=== PATIENT | female | born 1990 | race Caucasian/White ===

== ENCOUNTER 2023-01-23 01:34 | Inpatient (IN) | payer MEDICAID, SELFPAY ==
[2023-01-23] VITALS (12 sets, daily range): BP systolic 109–149; BP diastolic 67–102; PULSE 98–125; RESP 18–26; TEMP 36.4–37.2; O2SAT 91–96; BMI 31.2; BMI 27.4
--- NOTE | ~2023-01-23 | NM_ITS ---
EXAMINATION: SD LUNG IMAGE PERFUSION CLINICAL INFORMATION: SOB and 1 month . COMPARISON: Chest x-ray 01/23/2023. TECHNIQUE: Following intravenous administration of 4 mCi of 90 9M technetium MAA, imaging of both lungs were obtained multiple projections. Ventilation study was not performed. FINDINGS: On perfusion scan there is normal flow seen to all segments of both lungs without any focal segmental or subsegmental defect. Ventilation study was not performed. NM/SD pul perfusion IMPRESSION: Normal perfusion scan. Suspicion for pulmonary emboli is low. Chest x-ray is more suggestive of multifocal pneumonia. Is patient Covid negative ?.
--- NOTE | ~2023-01-23 | XR_ITS ---
EXAMINATION: XR CHEST CLINICAL INFORMATION: Shortness of breath COMPARISON: None available. TECHNIQUE: Frontal view of the chest was obtained. FINDINGS: Diffuse bilateral streaky and patchy airspace opacities with partial obscuration of the diaphragm. Cardiac silhouette and pulmonary vascularity incompletely assessed due to the airspace disease. No large pleural effusion. No pneumothorax. No acute osseous abnormalities. XR/XR chest 1V IMPRESSION: Diffuse bilateral streaky and patchy airspace opacities compatible with multifocal pneumonia, or pulmonary edema.
--- NOTE | 2023-01-23 02:07 | ED.ASTHMA ---
HPI - Asthma General Chief Complaint: Asthma Stated Complaint: Diff breathing/ asthma Time Seen by Provider: 01/23/23 01:55 Source: patient Mode of arrival: ambulatory Limitations: no limitations History of Present Illness HPI Narrative: Patients of asthma and seasonal allergies being short of breath for last 5 days patient is 1 month. Tried albuterol inhaler without much response saturating 89% at room air no leg pain no fever patient with coughing and vomiting after cough no fever no chills patient feeling increased short of breath patient lying down for last 2 days no leg edema patient was too had high blood pressure at the time of delivery no follow-up blood pressure on arrival patient's blood pressure was 149/102 heart rate of 125 Related Data Allergies Allergy/AdvReac Type Severity Reaction Status Date / Time No Known Allergies Allergy Verified 01/23/23 02:20 Review of Systems Review of Systems: Yes all other systems are reviewed and are negative [facility] Social History Social History Alcohol intake: never Smoked in Last 30 Days: No Use of substances other than those prescribed or required for medical reasons: No Advance Directives: No Advance Directives Information Provided: No Patient : No Physical Exam Vital Signs: Vital Signs: Last Vital Signs Temp 97.5 F 01/23/23 04:00 Pulse 125 H 01/23/23 04:18 Resp 24 H 01/23/23 04:18 BP 136/92 H 01/23/23 04:18 Pulse Ox 96 01/23/23 04:18 O2 Del Method Nasal Cannula 01/23/23 04:18 O2 Flow Rate 3 01/23/23 04:18 BMI result Body Mass Index 31.2 Appearance: Alert. Oriented X3. In moderate respiratory distress Eyes: PERRLA, No Nystagmus ENT: Pharynx normal. Oral Mucosa moist Neck: Normal inspection. Neck supple. CVS: Normal heart rate and rhythm. Pulses normal. Respiratory: Moderate respiratory distress. Equal air entry bilateral, bilateral prolonged expiration coarse crackle bilateral bases right > left Abdomen: Soft and nontender. Bowel sounds are present, no mass palpable, no CVA tenderness Skin: Skin warm and dry. Normal skin color. Normal skin turgor. Extremities: No lower extremity edema. No calf tenderness Neuro: Oriented X 3. No motor deficit. Medications Administered Discontinued Medications Generic Name Dose Route Start Last Admin Trade Name Freq PRN Reason Stop Dose Admin Albuterol Sulfate 5 mg/ 0 mg 01/23/23 02:20 01/23/23 02:53 Albuterol/Ipratropium 3 ml INHALE 01/23/23 02:21 1 each ONCE ONE Administration Furosemide 40 mg 01/23/23 04:20 01/23/23 04:44 Furosemide 40 Mg/4 Ml Vial IVPUSH 01/23/23 04:21 40 mg ONCE ONE Administration Protocol Sodium Chloride 1,000 mls @ 999 mls/hr 01/23/23 02:20 01/23/23 03:50 Ns IV 01/23/23 03:20 Infused .Q1H1M ONE Infusion Magnesium Sulfate 2 gm in 50 mls @ 100 mls/hr 01/23/23 02:20 01/23/23 03:18 Magnesium Sulfate/H2o IV 01/23/23 02:49 Infused ONCE ONE Infusion Ceftriaxone Sodium 1 gm/ 50 mls @ 100 mls/hr 01/23/23 05:14 01/23/23 05:56 Sodium Chloride IV 01/23/23 05:43 Infused ONCE ONE Infusion Methylprednisolone Sodium Succinate 125 mg 01/23/23 02:20 01/23/23 02:48 Methylprednisolone Sod Succ 125 Mg/2 Ml Vial IVPUSH 01/23/23 02:21 125 mg ONCE ONE Administration Medical Decision Making Medical Decision Making [facility] Narrative: Patient with acute shortness of breath with history of asthma workup showed elevated BNP suggestive of CHF x-ray showed pulmonary edema versus infiltrate more likely pulmonary edema with elevated BNP normal WBC count patient troponin also slightly elevated without any acute ischemic changes in the EKG. Her lactic acid level was elevated 3.6 but is mostly from type B lactic acidosis from use of albuterol treatment no signs suggestive of sepsis. Patient tachycardia is from CHF and cardiomyopathy. We will hold IV fluids at this time instead will give diuresis, will give prophylactic Rocephin as she had some wbc's in the urine Differential Diagnosis Status asthmaticus/CHF/PE/pneumonia Consult Healthcare Provider Management of the patient was discussed with: Hospitalist Lab Data [facility] Lab Attestation statement: I reviewed the patient's lab results. 01/23/23 02:41 01/23/23 02:41 Labs: Lab Results 06/16/23 06/16/23 06/16/23 Range/Units 02:41 02:41 02:41 WBC 9.7 (4.8-10.8) X10*3/uL RBC 4.62 (4.20-5.50) X10*6/uL Hgb 13.8 (12.0-16.0) g/dl Hct 41.0 (37.0-47.0) % MCV 88.7 (80.0-98.0) fL MCH 29.9 (27.0-33.0) pg MCHC 33.7 (31.0-35.0) g/dl RDW 13.3 (11.0-16.0) % Plt Count 248 (160-400) X10*3/uL MPV 11.0 (9.4-12.3) fL Immature Gran % (Auto) 0.3 (0.0-0.4) % Neut % (Auto) 80.0 H (45-73) % Lymph % (Auto) 13.8 L (20-40) % [place] % (Auto) 5.1 (2-11) % Eos % (Auto) 0.5 (0-4) % Baso % (Auto) 0.3 (0-2) % Lymph # (Auto) 1.3 (1.2-4.9) X10*3/uL [place] # (Auto) 0.5 (0.1-1.2) X10*3/uL Eos # (Auto) 0.1 (0.0-0.4) X10*3/uL Baso # (Auto) 0.0 (0.0-0.2) X10*3/uL Abs Immat Gran (auto) 0.03 (0.00-0.03) X10*3/uL Absolute Neuts (auto) 7.8 (2.0-8.3) x10*3/uL Absolute Nucleated RBC 0.000 (0.0-0.012) X10*3/uL Nucleated RBC % (auto) 0.0 (0.0-0.2) /100WBC PT 11.4 (10.0-13.1) SEC INR 1.0 (0.9-1.1) APTT 32.1 (26.0-36.4) SEC D-Dimer High Sensitivty 421 NG/ML Sodium 140 (135-145) mmol/L Potassium 4.0 (3.3-5.1) mmol/L Chloride 109 H (96-108) mmol/L Carbon Dioxide 20 L (22-29) mmol/L Anion Gap 15 (12-20) BUN 10 (9-16) mg/dL Creatinine 0.78 (0.5-1.4) mg/dL Estim Creat Clear Calc 93.8 Estimated GFR > 60 Random Glucose 114 (60-115) mg/dL Lactic Acid (0.5-2.0) mmol/L Calcium 9.1 (8.4-10.2) mg/dL Troponin I High Sens (<3.5-17.0) ng/L B-Natriuretic Peptide (<100) pg/mL Urine Color Urine Appearance Urine pH (5.0-9.0) Ur Specific [place] (1.005-1.025) Urine Protein (Neg-Trace) mg/dL Urine Glucose (UA) (Negative) mg/dL Urine Ketones (Negative) mg/dL Urine Blood (Negative) Urine Nitrite (Negative) Ur Leukocyte Esterase (Negative) Urine RBC (0-2) /HPF Urine WBC (0-5) /HPF Ur Squamous Epith Cells (0-2) /HPF Urine Bacteria (None Seen) Hyaline Casts (0-2) /LPF COVID-19 (CYNDY) (Negative) COVID-19 Clin Com 01/23/23 01/23/23 01/23/23 Range/Units 02:41 02:41 04:50 WBC (4.8-10.8) X10*3/uL RBC (4.20-5.50) X10*6/uL Hgb (12.0-16.0) g/dl Hct (37.0-47.0) % MCV (80.0-98.0) fL MCH (27.0-33.0) pg MCHC (31.0-35.0) g/dl RDW (11.0-16.0) % Plt Count (160-400) X10*3/uL MPV (9.4-12.3) fL Immature Gran % (Auto) (0.0-0.4) % Neut % (Auto) (45-73) % Lymph % (Auto) (20-40) % [place] % (Auto) (2-11) % Eos % (Auto) (0-4) % Baso % (Auto) (0-2) % Lymph # (Auto) (1.2-4.9) X10*3/uL [place] # (Auto) (0.1-1.2) X10*3/uL Eos # (Auto) (0.0-0.4) X10*3/uL Baso # (Auto) (0.0-0.2) X10*3/uL Abs Immat Gran (auto) (0.00-0.03) X10*3/uL Absolute Neuts (auto) (2.0-8.3) x10*3/uL Absolute Nucleated RBC (0.0-0.012) X10*3/uL Nucleated RBC % (auto) (0.0-0.2) /100WBC PT (10.0-13.1) SEC INR (0.9-1.1) APTT (26.0-36.4) SEC D-Dimer High Sensitivty NG/ML Sodium (135-145) mmol/L Potassium (3.3-5.1) mmol/L Chloride (96-108) mmol/L Carbon Dioxide (22-29) mmol/L Anion Gap (12-20) BUN (9-16) mg/dL Creatinine (0.5-1.4) mg/dL Estim Creat Clear Calc Estimated GFR Random Glucose (60-115) mg/dL Lactic Acid 3.6 H* (0.5-2.0) mmol/L Calcium (8.4-10.2) mg/dL Troponin I High Sens 34.2 H (<3.5-17.0) ng/L B-Natriuretic Peptide 1662 H (<100) pg/mL Urine Color Urine Appearance Urine pH (5.0-9.0) Ur Specific [place] (1.005-1.025) Urine Protein (Neg-Trace) mg/dL Urine Glucose (UA) (Negative) mg/dL Urine Ketones (Negative) mg/dL Urine Blood (Negative) Urine Nitrite (Negative) Ur Leukocyte Esterase (Negative) Urine RBC (0-2) /HPF Urine WBC (0-5) /HPF Ur Squamous Epith Cells (0-2) /HPF Urine Bacteria (None Seen) Hyaline Casts (0-2) /LPF COVID-19 (CYNDY) (Negative) COVID-19 Clin Com 01/23/23 01/23/23 Range/Units 04:50 04:52 WBC (4.8-10.8) X10*3/uL RBC (4.20-5.50) X10*6/uL Hgb (12.0-16.0) g/dl Hct (37.0-47.0) % MCV (80.0-98.0) fL MCH (27.0-33.0) pg MCHC (31.0-35.0) g/dl RDW (11.0-16.0) % Plt Count (160-400) X10*3/uL MPV (9.4-12.3) fL Immature Gran % (Auto) (0.0-0.4) % Neut % (Auto) (45-73) % Lymph % (Auto) (20-40) % [place] % (Auto) (2-11) % Eos % (Auto) (0-4) % Baso % (Auto) (0-2) % Lymph # (Auto) (1.2-4.9) X10*3/uL [place] # (Auto) (0.1-1.2) X10*3/uL Eos # (Auto) (0.0-0.4) X10*3/uL Baso # (Auto) (0.0-0.2) X10*3/uL Abs Immat Gran (auto) (0.00-0.03) X10*3/uL Absolute Neuts (auto) (2.0-8.3) x10*3/uL Absolute Nucleated RBC (0.0-0.012) X10*3/uL Nucleated RBC % (auto) (0.0-0.2) /100WBC PT (10.0-13.1) SEC INR (0.9-1.1) APTT (26.0-36.4) SEC D-Dimer High Sensitivty NG/ML Sodium (135-145) mmol/L Potassium (3.3-5.1) mmol/L Chloride (96-108) mmol/L Carbon Dioxide (22-29) mmol/L Anion Gap (12-20) BUN (9-16) mg/dL Creatinine (0.5-1.4) mg/dL Estim Creat Clear Calc Estimated GFR Random Glucose (60-115) mg/dL Lactic Acid (0.5-2.0) mmol/L Calcium (8.4-10.2) mg/dL Troponin I High Sens (<3.5-17.0) ng/L B-Natriuretic Peptide (<100) pg/mL Urine Color Yellow Urine Appearance Clear Urine pH 6.5 (5.0-9.0) Ur Specific [place] 1.010 (1.005-1.025) Urine Protein Negative (Neg-Trace) mg/dL Urine Glucose (UA) Negative (Negative) mg/dL Urine Ketones Negative (Negative) mg/dL Urine Blood Negative (Negative) Urine Nitrite Negative (Negative) Ur Leukocyte Esterase Large (3+) H (Negative) Urine RBC 0-2 (0-2) /HPF Urine WBC 21-50 H (0-5) /HPF Ur Squamous Epith Cells 6-10 (0-2) /HPF Urine Bacteria 1+ (None Seen) Hyaline Casts 0-2 (0-2) /LPF COVID-19 (CYNDY) Negative (Negative) COVID-19 Clin Com See Note Independent Interpretation I performed an independent interpretation of an: EKG Interpretation: Sinus tachycardia heart rate 130 beats per minute T inversion in lateral leads no acute ST wave changes no acute ischemia Critical Care Time Critical Care Time Critical Care Time: Yes Total Critical Care Time: 60 Attestation: The patient was critically ill with a high probability of imminent or life threatening deterioration. I spent greater than 70 minutes of discontinuous time evaluating the patient,delivering critical care at the bedside, discussing and evaluating pertinent data with consultants. Critical care time does not include time spent performing separately billable procedures or teaching. Total time spent performing critical care was 60 minutes. Discharge Plan Discharge Clinical Impression: Acute cardiogenic pulmonary edema, Asthma with acute exacerbation Patient Disposition: Admitted As Inpatient
--- NOTE | 2023-01-23 02:22 | ECG_ITS ---
Test Reason : ASTHMA Blood Pressure : / mmHG Vent. Rate : 130 BPM Atrial Rate : 130 BPM P-R Int : 136 ms QRS Dur : 072 ms QT Int : 310 ms P-R-T Axes : 058 004 112 degrees QTc Int : 456 ms Sinus tachycardia Possible Left atrial enlargement T wave abnormality, consider lateral ischemia Abnormal ECG No previous ECGs available Referred By: Miguel Ángel Jameson Electronically Signed By:LÓPEZ ARRINGTON MD
[2023-01-23 02:46] LABS: Basophils Percent Auto 0.3 % (0-2); Eosinophils Absolute Auto 0.1 X10*3/uL (0.0-0.4); Eosinophils Percent Auto 0.5 % (0-4); Hemoglobin 13.8 g/dl (12.0-16.0); Imm Gran Abs Auto 0.03 X10*3/uL (0.00-0.03); Imm Gran Pct Auto 0.3 % (0.0-0.4); Lymphocytes Absolute Auto 1.3 X10*3/uL (1.2-4.9); Lymphocytes Percent Auto 13.8 % (20-40); MANUAL DIFF FLAG NO; Mean Corpuscular HGB Conc 33.7 g/dl (31.0-35.0); Mean Corpuscular Hemoglobin 29.9 pg (27.0-33.0); Mean Corpuscular Volume 88.7 fL (80.0-98.0); Monocytes Absolute Auto 0.5 X10*3/uL (0.1-1.2); Monocytes Percent Auto 5.1 % (2-11); Neutrophils Absolute Auto 7.8 x10*3/uL (2.0-8.3); Platelet Count 248 X10*3/uL (160-400); Red Blood Count 4.62 X10*6/uL (4.20-5.50); Red Cell Distribution Width 13.3 % (11.0-16.0); White Blood Count 9.7 X10*3/uL (4.8-10.8)
[2023-01-23] MEDS: Magnesium Sulfate/H2O 2 GM/50 ML PIGGYBACK IV (02:48)
[2023-01-23] MEDS: methylPREDNISolone Sod Succ 125 MG/2 ML VIAL IVPUSH (02:48)
[2023-01-23] MEDS: 0.9 % Sodium Chloride 1,000 ML 999 ML IV (02:49)
[2023-01-23 02:53] LABS: D Dimer High Sensitivity 421 NG/ML
[2023-01-23 02:57] LABS: Anion Gap 15 (12-20); Blood Urea Nitrogen 10 mg/dL (9-16); Calcium 9.1 mg/dL (8.4-10.2); Carbon Dioxide 20 mmol/L (22-29); Chloride 109 mmol/L (96-108); Creatinine Clr Calc Pharmacy 93.8; Estimated Glomerular Filt Rate > 60; Glucose Random 114 mg/dL (60-115); Sodium 140 mmol/L (135-145)
[2023-01-23 04:26] LABS: Prothrombin Time 11.4 SEC (10.0-13.1)
[2023-01-23 04:29] LABS: Partial Thromboplastin Time 32.1 SEC (26.0-36.4)
[2023-01-23] MEDS: Furosemide 40 MG/4 ML VIAL IVPUSH ×2 (04:44→10:11)
[2023-01-23 04:46] LABS: B Type Natriuretic Peptide 1662 pg/mL (<100)
[2023-01-23 04:47] LABS: Troponin-I High Sensitivity 34.2 ng/L (<3.5-17.0)
[2023-01-23 04:59] LABS: Appearance Urine Clear; Color Urine Yellow; Glucose Urine UA Negative (Negative); Leukocyte Esterase Urine Large (3+) (Negative); Nitrite Urine Negative (Negative); PH 6.5 (5.0-9.0); UMIC TRIGGER UACC YES; Urine Blood Negative (Negative); Urine Ketones Negative (Negative); Urine Protein Negative (Neg-Trace)
[2023-01-23 05:04] LABS: Bacteria Urine 1+ (None Seen); Hyaline Casts Urine 0-2 /LPF (0-2); RBC Urine 0-2 /HPF (0-2); UACC Culture Trigger YES; WBC Urine 21-50 /HPF (0-5)
[2023-01-23 05:14] LABS: Lactic Acid 3.6 mmol/L (0.5-2.0)
[2023-01-23 05:16] LABS: COVID-19 Test Negative (Negative); IDNOW Serial# BCCEAD1C
[2023-01-23] MEDS: cefTRIAXone sodium 1 GM in 0.9 % Sodium Chloride 50 ML IV (05:26)
--- NOTE | 2023-01-23 06:28 | P.HPHOSP_ITS ---
History of Present Illness Date of Service: 01/23/23 Chief Complaint: shortness of breath 32-year-old female past medical history of asthma that recently gave presents the hospital with shortness of breath. Patient reports that she is 1 month . she started feeling shortness of breath starting Thursday worsening over the next several days. She states that she thought it was her asthma but was not getting better and now having significant shortness of breath even at rest, she has orthopnea, no lower extremity edema. She reports that during in the last trimester she did have hypertension but he was not treated. She also was supposed to have a visit today but was too short of breath and postponed it to next week. She reports no chest pain, has a cough that is nonproductive, no palpitations, no abdominal pain, no nausea or vomiting, no diarrhea constipation, she does have urinary frequency with no dysuria. She is currently not breast-feeding on arrival to the ED patient noted to have tachycardia, tachypnea, slightly elevated blood pressure in the 140s over 90s Labs are significant for WBC count 9.7, BNP of 1662, initial troponin of 34.2 UA is positive for leukocyte Estrace and WBC x-ray showed diffuse bilateral streaky and patchy airspace opacities compatible with multifocal pneumonia or pulmonary edema patient started on IV Lasix and will be admitted for further management Review of Systems Review of Systems: Yes all other systems are reviewed and are negative [facility] Medical History Asthma Surgical History No pertinent past surgical history Social History Alcohol intake: never Smoked in Last 30 Days: No Use of substances other than those prescribed or required for medical reasons: No Advance Directives: No Advance Directives Information Provided: No Patient : No Meds Allergies Allergy/AdvReac Type Severity Reaction Status Date / Time No Known Allergies Allergy Verified 01/23/23 02:20 Physical Exam Vital Signs and Narrative: Vital Signs: Last Vital Signs Temp 97.5 F 01/23/23 04:00 Pulse 125 H 01/23/23 04:18 Resp 24 H 01/23/23 04:18 BP 136/92 H 01/23/23 04:18 Pulse Ox 96 01/23/23 04:18 O2 Del Method Nasal Cannula 01/23/23 04:18 O2 Flow Rate 3 01/23/23 04:18 BMI result Body Mass Index 31.2 Const: General: cooperative and no acute distress Orientation/consciousness: patient oriented x3 Eyes: General: appearance normal, both eyes and all related structures Resp: Other: tachypneic, sitting up in bed, crackles bilaterally, Cardio: Rate: regular rate Rhythm: regular rhythm GI: Palpation (GI): Soft to palpation Auscultation: normal bowel sounds Skin: General skin exam: no rashes or lesions noted Neuro: General: patient oriented x3 Cognition (Neuro): normal cognition Extrem: General: Yes normal to inspection and Yes no pedal edema Results Labs 01/23/23 02:41 01/23/23 02:41 Labs: Laboratory Results - last 24 hr 01/23/23 01/23/23 01/23/23 02:41 02:41 02:41 MCV 88.7 MCH 29.9 MCHC 33.7 RDW 13.3 Plt Count 248 MPV 11.0 Immature Gran % (Auto) 0.3 Neut % (Auto) 80.0 H Lymph % (Auto) 13.8 L [place] % (Auto) 5.1 Eos % (Auto) 0.5 Baso % (Auto) 0.3 Lymph # (Auto) 1.3 [place] # (Auto) 0.5 Eos # (Auto) 0.1 Baso # (Auto) 0.0 Abs Immat Gran (auto) 0.03 Absolute Neuts (auto) 7.8 Absolute Nucleated RBC 0.000 Nucleated RBC % (auto) 0.0 PT 11.4 INR 1.0 APTT 32.1 D-Dimer High Sensitivty 421 Anion Gap 15 Estim Creat Clear Calc 93.8 Estimated GFR > 60 Random Glucose 114 Lactic Acid Calcium 9.1 Troponin I High Sens B-Natriuretic Peptide Urine Color Urine Appearance Urine pH Ur Specific [place] Urine Protein Urine Glucose (UA) Urine Ketones Urine Blood Urine Nitrite Ur Leukocyte Esterase Urine RBC Urine WBC Ur Squamous Epith Cells Urine Bacteria Hyaline Casts COVID-19 (CYNDY) COVID-19 Clin Com 01/23/23 01/23/23 01/23/23 02:41 02:41 04:50 MCV MCH MCHC RDW Plt Count MPV Immature Gran % (Auto) Neut % (Auto) Lymph % (Auto) [place] % (Auto) Eos % (Auto) Baso % (Auto) Lymph # (Auto) [place] # (Auto) Eos # (Auto) Baso # (Auto) Abs Immat Gran (auto) Absolute Neuts (auto) Absolute Nucleated RBC Nucleated RBC % (auto) PT INR APTT D-Dimer High Sensitivty Anion Gap Estim Creat Clear Calc Estimated GFR Random Glucose Lactic Acid 3.6 H* Calcium Troponin I High Sens 34.2 H B-Natriuretic Peptide 1662 H Urine Color Urine Appearance Urine pH Ur Specific [place] Urine Protein Urine Glucose (UA) Urine Ketones Urine Blood Urine Nitrite Ur Leukocyte Esterase Urine RBC Urine WBC Ur Squamous Epith Cells Urine Bacteria Hyaline Casts COVID-19 (CYNDY) COVID-19 Clin Com 01/23/23 01/23/23 04:50 04:52 MCV MCH MCHC RDW Plt Count MPV Immature Gran % (Auto) Neut % (Auto) Lymph % (Auto) [place] % (Auto) Eos % (Auto) Baso % (Auto) Lymph # (Auto) [place] # (Auto) Eos # (Auto) Baso # (Auto) Abs Immat Gran (auto) Absolute Neuts (auto) Absolute Nucleated RBC Nucleated RBC % (auto) PT INR APTT D-Dimer High Sensitivty Anion Gap Estim Creat Clear Calc Estimated GFR Random Glucose Lactic Acid Calcium Troponin I High Sens B-Natriuretic Peptide Urine Color Yellow Urine Appearance Clear Urine pH 6.5 Ur Specific [place] 1.010 Urine Protein Negative Urine Glucose (UA) Negative Urine Ketones Negative Urine Blood Negative Urine Nitrite Negative Ur Leukocyte Esterase Large (3+) H Urine RBC 0-2 Urine WBC 21-50 H Ur Squamous Epith Cells 6-10 Urine Bacteria 1+ Hyaline Casts 0-2 COVID-19 (CYNDY) Negative COVID-19 Clin Com See Note Imaging Radiologist's Impressions: Impressions Chest X-Ray 01/23/23 02:36 IMPRESSION: Diffuse bilateral streaky and patchy airspace opacities compatible with multifocal pneumonia, or pulmonary edema. Assessment and Plan (1) Asthma with acute exacerbation: Status: Acute (2) cardiomyopathy: Status: Acute Plan 32-year-old female past medical history of asthma presents the hospital with increased shortness of breath found to have likely cardiomyopathy # acute dyspnea - although patient has history of asthma but has significant evidence of elevated BNP, evidence of pulmonary edema on chest x-ray - patient also has orthopnea and PND - recently within the last 1 month - given the significantly elevated BNP, chest x-ray finding, and symptoms patient will be treated for acute CHF - given high risk of DVT, will also obtain V/Q scan although PE less likely # acute cardiomyopathy - dyspnea, orthopnea, PND, elevated BNP, chest x-ray evidence of pulmonary edema - will treat with Lasix, low-sodium diet, strict I&O, daily weight - echocardiogram, - cardiology consulted # acute UTI - has increased frequency - will treat with IV antibiotics - follow cultures # history of asthma - likely in exacerbation - small amount of wheezing on exam - Annmarie p.r.n. DVT prophylaxis: Lovenox Given patient's need for further evaluation patient require minimum 2 nights inpatient hospital stay for further management and monitoring Time Spent With Patient Time: Total time managing care of this patient today ____ minutes. Quality Stroke Does the patient have a stroke diagnosis?: No VTE Prior VTE?: No VTE Risk Level:: Medical - moderate - high VTE Device Contraindication: Treatment Not Indicated VTE Drug Contraindication: N/A - Med Ordered
[2023-01-23 06:57] LABS: Reflex Lactate? Lactic Acid Added
--- NOTE | 2023-01-23 07:00 | CA_ITS ---
Transthoracic Echocardiogram Patient (Last, First, Middle): Darcie Rowan, Gender: Female Date of : 1990 Age: 32 Procedure Date: 01/23/2023 Procedure Type: Transthoracic Echocardiogram Location: ER Height: 154.94 cm Weight: 72.58 kg BSA: 1.72 m2 Heart Rate: bpm BP: 136 / 92 mmHg Extruder Operator: JAYCE Referring MD: Marc Muñoz MD Window Maker: Manuel Hernandez MD Symptoms: CM Study Quality: Adequate ECG Rhythm: Sinus Conclusions: - 1. Mildly dilated left ventricle with moderate to severe LV systolic dysfunction with LVEF of 30-35% 2. Mildly dilated left atrium 3. Trace aortic regurgitation 4. Mild mitral regurgitation 5. No gross pericardial effusion Findings Left Ventricle Mildly increased left ventricular cavity size. There is normal left ventricular wall thickness. The left ventricular systolic function is moderate to severely decreased. The visually estimated ejection fraction is between 30-35%. There is severe global hypokinesis. Diastolic function is indeterminate on the basis of available data. Peak GLS is -10.9%, which is significantly reduced. Right Ventricle Normal right ventricular cavity size and systolic function. Atria The left atrium is mildly dilated. There is no evidence of interatrial shunt. The right atrium is normal in size. Aortic Valve Normal aortic valve structure and function. There is no aortic valve stenosis. There is trace (trivial) aortic valve regurgitation. Mitral Valve Normal mitral valve structure and function. There is mild mitral valve regurgitation. There is no mitral valve stenosis. Pulmonic Valve The pulmonic valve is likely normal. There is trace pulmonic valve regurgitation. Tricuspid Valve Normal tricuspid valve structure. There is trace tricuspid valve regurgitation. Tricuspid regurgitation envelope is inadequate for calculation of right ventricular systolic pressure. Great Vessels All visible segments of the aorta are normal in size. The pulmonary artery was not well visualized. Venous The inferior vena cava is normal in size and collapses greater than 50% with inspiration. Pericardium/Pleural There is no evidence of pericardial effusion. There is a moderate left sided pleural effusion. Prior Study Comparison No prior study available for comparison. Measurements 2D Linear Measurements IVSd: 0.93 0.6-0.9/0.6-1.0 cm LVIDd: 5.75 3.9-5.3/4.2-5.9 cm LVIDd Index: 3.34 2.4-3.2/2.2-3.1 cm/m2 LVIDs: 4.88 2.0-3.6 cm LVPWd: 0.84 0.7-1.1 cm Ao Root: 3.00 2.1-3.5 cm LA Diam: 3.90 2.7-3.8/3.0-4.0 cm LAIDs Index: 2.27 1.5-2.3 cm/m2 LV Mass: 244.03 67-162/88-224 g LV Mass Index: 141.88 43-95/49-115 g/m2 LVOT Diam: 2.00 3.0+(-)1.3 cm 2D Systolic Function EF 4C: 28.70 >55% EF 2C: 37.20 >55% EF BiP: 31.00 >55% Mitral Valve MV Pk E: 0.52 MV PK A: 1.32 MV Decel Time: 97.00 E/A: 0.40 E'Lateral: 10.30 E'Medial: 10.00 E/E' Med: 5.20 E/E' Lat: 5.10 PHT: 29.00 MVA PHT: 7.59 Decel Rooks: 5.36 Aortic Valve AoV Pk Juve: 1.42 AoV Mn Juve: 0.99 AoV VTI: 0.23 AoV Pk Grad: 8.00 Aov Mn Grad: 5.00 DEJUAN Cont.VTI: 3.21 LVOT LVOT Pk Juve: 1.41 LVOT Mn Juve: 1.01 LVOT VTI: 0.23 LVOT Pk Grad: 8.00 LVOT Mn Grad: 5.00 LVOT Diam: 2.00 LVOT Area: 3.14 Diastolic Function MV Pk E: 0.52 MV Pk A: 1.32 E/A: 0.40 E'Medial: 10.00 E/E' Med: 5.20 E' Laterial: 10.30 E/E' Lat: 5.10 Right Ventricle TAPSE (mm): 27.80 TVS' Juve: 11.00 Tricuspid Valve TR Pk Juve: 1.30 TR Pk Grad: 7.00 Great Vessels Aorta Ao Root-2D: 3.00 2.0-3.7 cm Pulmonary Valve PV Pk Juve: 0.88 Peak PV Grad: 3.00 Updated in Other Vendor System with Status of Final Manuel Hernandez MD electronically signed on 01/23/2023 3:08:43 PM with status of Final
[2023-01-23 07:36] LABS: Troponin-I High Sensitivity 40.4 ng/L (<3.5-17.0)
[2023-01-23 07:38] LABS: ~Lactic Acid-LAB USE ONLY 4.2 mmol/L (0.5-2.0)
--- NOTE | 2023-01-23 07:40 | PC.NURSE ---
Addendum entered by Scarlett Arteaga RN 01/23/23 07:40: MD Gale informed, will continue to monitor/ await new orders Original Note: nuc med called for pt - informed pt she will be going over, she informed t/w that she is unable to tolerate laying flat at this time as her O2 drops and she becomes unable to breathe
[2023-01-23] MEDS: 0.9 % Sodium Chloride Flush 3 ML SYRINGE IVFLUSH ×2 (07:45→18:33)
[2023-01-23] MEDS: Enoxaparin Sodium 40 MG/0.4 ML SYRINGE SUBCUT (07:45)
--- NOTE | 2023-01-23 07:49 | PC.NURSE ---
per Dr. Naranjo, will hold off on NM perfusion test at this time and re-evaluate.
--- NOTE | 2023-01-23 07:52 | PHA.MEDREC ---
Pharmacy Consult ? Medication Reconciliation Pharmacy has completed the medication reconciliation.
--- NOTE | 2023-01-23 08:23 | PC.NURSE ---
ECHO at bedside at this time
[2023-01-23 09:11] LABS: Reflex Lactate? 2 Y
--- NOTE | 2023-01-23 10:10 | P.CONCA_ITS ---
History of Present Illness History of Present Illness Date of Service: 01/23/23 Requesting physician: Sathya Naranjo Consult reason: congestive heart failure Chief complaint: cardiomyopathy Narrative: I was consulted to see Darcie in cardiology consultation today for acute congestive heart failure. She is a pleasant 32-year-old woman with prior history of asthma with recent normal delivery about a month ago offer LD baby girl 9 lb. She had no complications during the Labor and in the amber labile. . Over the last few days she has been getting progressively more short of breath. Initially she thought that she was having asthma however it did not get better with her usual treatment. Then she started feeling that this was not getting better and she got progressive more more short of breath and not able to breathe at nighttime when she was laying down. She had no abdominal distension or leg edema. No lightheadedness, syncope. She notices heart rate to be racing. She came to the emergency room and was noted to be in pulmonary edema with elevated BNP greater than 1000 with chest x-ray finding consistent with pulmonary edema. She has received Lasix with poorly charted urine output. However she says compared to yesterday she feels a lot better. Bedside echocardiogram was performed with LVEF about 30%. Full review the perform later. She still remains tachycardic and has sinus tachycardia. She denies any chest pain now. Denies any wheezing, recent illnesses or viral illnesses. Denies any palpitations or lightheadedness. She is anxious. Her oxygenation is improved with oxygen supplementation diuresis. Review of Systems Constitutional: Constitutional: Reports no additional constitutional complaints Eyes: Eyes: Reports no additional eye complaints Cardiovascular: Cardiovascular: Denies chest pain, Reports rapid heart rate, Denies leg edema, Denies lightheadedness, Denies Loss of Consciousness, Reports dyspnea, Reports dyspnea on exertion and Reports orthopnea Respiratory: Respiratory: Reports no additional respiratory complaints, Reports dyspnea and Reports dyspnea on exertion Gastrointestinal: Gastrointestinal: Reports no additional gastrointestinal complaints Genitourinary: Genitourinary: Reports no additional female genitourinary complaints Musculoskeletal: Musculoskeletal: Reports no additional musculoskeletal complaints Integumentary/Breasts: Skin/Breast: Reports system reviewed and no additional complaints, except as docu Neurologic: Reports system reviewed and no additional complaints, except as documented Psychiatric: Psychiatric: Reports no additional psychiatric complaints Endocrine: Endocrine: Reports no additional endocrine complaints Hematologic/Lymphatic: Hematologic/Lymphatic: Reports no additional hematologic/lymphatic complaints Allergic/Immunologic: Allergic/Immunologic: Reports no additional allergic/immunologic complaints [facility] Past Medical History Medical History Asthma Surgical History Surgical History No pertinent past surgical history Social History Social History Alcohol intake: never Patient Tobacco Use Status: Never used Tobacco Smoked in Last 30 Days: No Use of substances other than those prescribed or required for medical reasons: No Advance Directives: No Advance Directives Information Provided: No Nutrition Risks: No Nutritional Risk Patient : No Meds Allergies Allergy/AdvReac Type Severity Reaction Status Date / Time No Known Allergies Allergy Verified 01/23/23 02:20 Active Medications: Current Medications Acetaminophen (Acetaminophen 325 Mg Tablet) 650 mg PO Q6H PRN PRN Reason: Pain, Mild (Pain Scale 1-3) Albuterol/Ipratropium (Albuterol/Iprat 2.5/0.5mg 3 Ml Ampul.Neb) 3 ml INHALE RQ4H PRN PRN Reason: Shortness of Breath/Wheezing Docusate Sodium (Docusate Sodium 100 Mg Capsule) 100 mg PO DAILY PRN PRN Reason: Constipation Enoxaparin Sodium (Enoxaparin Sodium 40 Mg/0.4 Ml Syringe) 40 mg SUBCUT Q24H [facility] Last Admin: 01/23/23 07:45 Dose: 40 mg Furosemide (Furosemide 40 Mg/4 Ml Vial) 40 mg IVPUSH DAILY [facility]; Protocol Ceftriaxone Sodium 1 gm/ (Sodium Chloride) 50 mls @ 100 mls/hr IV Q24H [facility] Multivitamins/Vitamin C (Multivitamin Tablet) 1 tab PO DAILY [facility] Omeprazole (Omeprazole 40 Mg Capsule.Dr) 40 mg PO DAILY@1630 [facility] Ondansetron HCl (Ondansetron Hcl 4 Mg/2 Ml Vial) 4 mg IVPUSH Q8H PRN PRN Reason: Nausea and Vomiting Sacubitril/Valsartan (Sacubitril/Valsartan 24/26 1 Tab Tablet) 1 tab PO BID [facility]; Protocol Sodium Chloride (0.9 % Sodium Chloride Flush 3 Ml Syringe) 3 ml IVFLUSH QSHIFT [facility] Last Admin: 01/23/23 07:45 Dose: 3 ml Spironolactone (Spironolactone 25 Mg Tablet) 12.5 mg PO BID@0900,1800 [facility]; Protocol Home Medications Medication Instructions Recorded Confirmed Last Taken Type omeprazole 40 mg capsule,delayed 40 mg PO DAILY@1630 01/23/23 01/23/23 Unknown History release vit no.95-ferrous 1 tab PO DAILY 01/23/23 01/23/23 Unknown History fumarate 28 mg-folic acid 800 mcg tablet () Physical Exam Vital Signs: Vital Signs: Last Vital Signs Temp 97.5 F 01/23/23 04:00 Pulse 115 H 01/23/23 07:41 Resp 19 01/23/23 07:41 BP 134/90 H 01/23/23 07:41 Pulse Ox 95 01/23/23 07:41 O2 Del Method Nasal Cannula 01/23/23 07:41 O2 Flow Rate 3 01/23/23 07:41 BMI result Body Mass Index 31.2 Const: General: cooperative, well developed, alert, awake, in distress mild and respiratory and anxious Nutritional Appearance: average body habitus Orientation/consciousness: patient oriented x3 HEENT: Head: Yes normocephalic and Yes atraumatic Neck: Neck: Yes trachea midline, Yes supple and Yes JVD Resp: Effort & Inspection: normal respiratory effort and respiratory distress Auscultation: rales on the right 1/[address] way up Cardio: Jugular venous distension: JVD Rate: tachycardic Heart sounds: S1 normal heart sound present, S2 normal heart sound present, no click, Gallop heart sound present S3 gallop, no murmurs and no rubs GI: Auscultation: normal bowel sounds Skin: General skin exam: no rashes or lesions noted Neuro: General: patient oriented x3 and no focal motor deficits Extrem: General: Yes no clubbing, cyanosis or edema Objective Labs and Meds 01/23/23 02:41 01/23/23 02:41 Lab results: Laboratory Results - last 24 hr 01/23/23 01/23/23 01/23/23 02:41 02:41 02:41 WBC 9.7 RBC 4.62 Hgb 13.8 Hct 41.0 MCV 88.7 MCH 29.9 MCHC 33.7 RDW 13.3 Plt Count 248 MPV 11.0 Immature Gran % (Auto) 0.3 Neut % (Auto) 80.0 H Lymph % (Auto) 13.8 L [place] % (Auto) 5.1 Eos % (Auto) 0.5 Baso % (Auto) 0.3 Lymph # (Auto) 1.3 [place] # (Auto) 0.5 Eos # (Auto) 0.1 Baso # (Auto) 0.0 Abs Immat Gran (auto) 0.03 Absolute Neuts (auto) 7.8 Absolute Nucleated RBC 0.000 Nucleated RBC % (auto) 0.0 PT 11.4 INR 1.0 APTT 32.1 D-Dimer High Sensitivty 421 Sodium 140 Potassium 4.0 Chloride 109 H Carbon Dioxide 20 L Anion Gap 15 BUN 10 Creatinine 0.78 Estim Creat Clear Calc 93.8 Estimated GFR > 60 Random Glucose 114 Lactic Acid Lactic Acid F/U @ 2Hr Calcium 9.1 Troponin I High Sens B-Natriuretic Peptide Urine Color Urine Appearance Urine pH Ur Specific [place] Urine Protein Urine Glucose (UA) Urine Ketones Urine Blood Urine Nitrite Ur Leukocyte Esterase Urine RBC Urine WBC Ur Squamous Epith Cells Urine Bacteria Hyaline Casts COVID-19 ([facility]) COVID-[employer] 01/23/23 01/23/23 01/23/23 02:41 02:41 04:50 WBC RBC Hgb Hct MCV MCH MCHC RDW Plt Count MPV Immature Gran % (Auto) Neut % (Auto) Lymph % (Auto) [place] % (Auto) Eos % (Auto) Baso % (Auto) Lymph # (Auto) [place] # (Auto) Eos # (Auto) Baso # (Auto) Abs Immat Gran (auto) Absolute Neuts (auto) Absolute Nucleated RBC Nucleated RBC % (auto) PT INR APTT D-Dimer High Sensitivty Sodium Potassium Chloride Carbon Dioxide Anion Gap BUN Creatinine Estim Creat Clear Calc Estimated GFR Random Glucose Lactic Acid 3.6 H* Lactic Acid F/U @ 2Hr Calcium Troponin I High Sens 34.2 H B-Natriuretic Peptide 1662 H Urine Color Urine Appearance Urine pH Ur Specific [place] Urine Protein Urine Glucose (UA) Urine Ketones Urine Blood Urine Nitrite Ur Leukocyte Esterase Urine RBC Urine WBC Ur Squamous Epith Cells Urine Bacteria Hyaline Casts COVID-19 ([facility]) COVID-[employer] 01/23/23 01/23/23 01/23/23 04:50 04:52 07:07 WBC RBC Hgb Hct MCV MCH MCHC RDW Plt Count MPV Immature Gran % (Auto) Neut % (Auto) Lymph % (Auto) [place] % (Auto) Eos % (Auto) Baso % (Auto) Lymph # (Auto) [place] # (Auto) Eos # (Auto) Baso # (Auto) Abs Immat Gran (auto) Absolute Neuts (auto) Absolute Nucleated RBC Nucleated RBC % (auto) PT INR APTT D-Dimer High Sensitivty Sodium Potassium Chloride Carbon Dioxide Anion Gap BUN Creatinine Estim Creat Clear Calc Estimated GFR Random Glucose Lactic Acid Lactic Acid F/U @ 2Hr Calcium Troponin I High Sens 40.4 H B-Natriuretic Peptide Urine Color Yellow Urine Appearance Clear Urine pH 6.5 Ur Specific [place] 1.010 Urine Protein Negative Urine Glucose (UA) Negative Urine Ketones Negative Urine Blood Negative Urine Nitrite Negative Ur Leukocyte Esterase Large (3+) H Urine RBC 0-2 Urine WBC 21-50 H Ur Squamous Epith Cells 6-10 Urine Bacteria 1+ Hyaline Casts 0-2 COVID-19 ([facility]) Negative COVID-19 Clin Com See Note 01/23/23 07:07 WBC RBC Hgb Hct MCV MCH MCHC RDW Plt Count MPV Immature Gran % (Auto) Neut % (Auto) Lymph % (Auto) [place] % (Auto) Eos % (Auto) Baso % (Auto) Lymph # (Auto) [place] # (Auto) Eos # (Auto) Baso # (Auto) Abs Immat Gran (auto) Absolute Neuts (auto) Absolute Nucleated RBC Nucleated RBC % (auto) PT INR APTT D-Dimer High Sensitivty Sodium Potassium Chloride Carbon Dioxide Anion Gap BUN Creatinine Estim Creat Clear Calc Estimated GFR Random Glucose Lactic Acid Lactic Acid F/U @ 2Hr 4.2 H* Calcium Troponin I High Sens B-Natriuretic Peptide Urine Color Urine Appearance Urine pH Ur Specific [place] Urine Protein Urine Glucose (UA) Urine Ketones Urine Blood Urine Nitrite Ur Leukocyte Esterase Urine RBC Urine WBC Ur Squamous Epith Cells Urine Bacteria Hyaline Casts COVID-19 ([facility]) COVID-19 Clin Com Imaging Radiologist's impression: Impressions Chest X-Ray 01/23/23 02:36 IMPRESSION: Diffuse bilateral streaky and patchy airspace opacities compatible with multifocal pneumonia, or pulmonary edema. Assessment and Plan (1) Acute cardiogenic pulmonary edema: Status: Acute Acute heart failure with echocardiogram showing severe LV systolic dysfunction most consistent with peripartum cardiomyopathy. Patient still appears to be in respiratory distress and heart failure. Continue IV diuresis. Strict intake and output chart needs to be pursued. Continue monitor electrolytes and renal function. Her troponin elevation related to cardiomyopathy and congestive heart failure. her lactic acidosis most likely related to hypoxemia. Repeat lactic acid is pending. I would given her treatment with Entresto 24-26 mg b.i.d. and add Aldactone 12.5 mg to her regimen. Once she is more euvolemic, will start on beta-calvin therapy. Had a very detailed discussion with her and her fiance at bedside and her family members at bedside about her medical condition and diagnosis. Management was discussed in details. Obviously she is anxious which is expected. Continue oxygen supplementation. Continue with supportive care. Will follow with her closely. Will review echocardiogram completely later today. Thank you for allowing me to partake in the care. Greater than 40 minutes was spent in managing her and coordinating her care Time Spent With Patient Time: Total time managing care of this patient today ____ minutes. Procedures Date of Service Date of Service: 01/23/23
[2023-01-23] MEDS: Multivitamin TABLET 1 TAB PO (10:11)
[2023-01-23 10:29] LABS: ~Lactic Acid-LAB USE ONLY 3.8 mmol/L (0.5-2.0)
[2023-01-23] MEDS: Sacubitril/Valsartan 24/26 1 TAB TABLET PO ×2 (11:54→19:48)
[2023-01-23] MEDS: Furosemide 20 MG/2 ML VIAL IVPUSH (12:26)
--- NOTE | 2023-01-23 14:21 | HO.PM.IMPN ---
Subjective Subjective Date of Service: 01/24/23 Interval History: chf ,tachycaria Review of Systems sob seems improving denies any chest pain or nausea or vomiting Physical Exam Vital Signs: Vital Signs: Last Vital Signs Temp 97.5 F 01/23/23 04:00 Pulse 108 H 01/23/23 12:26 Resp 25 H 01/23/23 12:26 BP 123/80 01/23/23 12:26 Pulse Ox 94 01/23/23 12:26 O2 Del Method Nasal Cannula 01/23/23 12:26 O2 Flow Rate 3 01/23/23 12:26 BMI result Body Mass Index 31.2 Appearance: Alert.? Oriented X3.? not in distress.? cvs: [id number], [id number] ,carcles at bases. res: clear to auscultation ,no rhonchii or wheezing abd: no rebound or guarding ,nt, bs present. ext pulses present , no cyanosis . neuro: axo3 , nonfocal. Objective Data Active Medications Acetaminophen (Acetaminophen 325 Mg Tablet) 650 mg PO Q6H PRN PRN Reason: Pain, Mild (Pain Scale 1-3) Albuterol/Ipratropium (Albuterol/Iprat 2.5/0.5mg 3 Ml Ampul.Neb) 3 ml INHALE RQ4H PRN PRN Reason: Shortness of Breath/Wheezing Docusate Sodium (Docusate Sodium 100 Mg Capsule) 100 mg PO DAILY PRN PRN Reason: Constipation Enoxaparin Sodium (Enoxaparin Sodium 40 Mg/0.4 Ml Syringe) 40 mg SUBCUT Q24H [facility] Last Admin: 01/23/23 07:45 Dose: 40 mg Documented By: YAMINI Furosemide (Furosemide 40 Mg/4 Ml Vial) 40 mg IVPUSH DAILY [facility]; Protocol Last Admin: 01/23/23 10:11 Dose: 40 mg Documented By: YAMINI Ceftriaxone Sodium 1 gm/ (Sodium Chloride) 50 mls @ 100 mls/hr IV Q24H [facility] Multivitamins/Vitamin C (Multivitamin Tablet) 1 tab PO DAILY [facility] Last Admin: 01/23/23 10:11 Dose: 1 tab Documented By: YAMINI Omeprazole (Omeprazole 40 Mg Capsule.) 40 mg PO DAILY@1630 [facility] Ondansetron HCl (Ondansetron Hcl 4 Mg/2 Ml Vial) 4 mg IVPUSH Q8H PRN PRN Reason: Nausea and Vomiting Sacubitril/Valsartan (Sacubitril/Valsartan 1 Tab Tablet) 1 tab PO BID [facility]; Protocol Last Admin: 01/23/23 11:54 Dose: 1 tab Documented By: YAMINI Sodium Chloride (0.9 % Sodium Chloride Flush 3 Ml Syringe) 3 ml IVFLUSH QSHIFT [facility] Last Admin: 01/23/23 07:45 Dose: 3 ml Documented By: YAMINI Spironolactone (Spironolactone 25 Mg Tablet) 12.5 mg PO BID@0900,1800 [facility]; Protocol Labs 01/23/23 02:41 01/23/23 02:41 Labs: Laboratory Results - last 24 hr 01/23/23 01/23/23 01/23/23 02:41 02:41 02:41 MCV 88.7 MCH 29.9 MCHC 33.7 RDW 13.3 Plt Count 248 MPV 11.0 Immature Gran % (Auto) 0.3 Neut % (Auto) 80.0 H Lymph % (Auto) 13.8 L [place] % (Auto) 5.1 Eos % (Auto) 0.5 Baso % (Auto) 0.3 Lymph # (Auto) 1.3 [place] # (Auto) 0.5 Eos # (Auto) 0.1 Baso # (Auto) 0.0 Abs Immat Gran (auto) 0.03 Absolute Neuts (auto) 7.8 Absolute Nucleated RBC 0.000 Nucleated RBC % (auto) 0.0 PT 11.4 INR 1.0 APTT 32.1 D-Dimer High Sensitivty 421 Anion Gap 15 Estim Creat Clear Calc 93.8 Estimated GFR > 60 Random Glucose 114 Lactic Acid Lactic Acid F/U @ 2Hr Lactic Acid F/U @ 4Hr Calcium 9.1 Troponin I High Sens B-Natriuretic Peptide Urine Color Urine Appearance Urine pH Ur Specific [place] Urine Protein Urine Glucose (UA) Urine Ketones Urine Blood Urine Nitrite Ur Leukocyte Esterase Urine RBC Urine WBC Ur Squamous Epith Cells Urine Bacteria Hyaline Casts COVID-19 ([facility]) COVID-19 Clin Com 01/23/23 01/23/23 01/23/23 02:41 02:41 04:50 MCV MCH MCHC RDW Plt Count MPV Immature Gran % (Auto) Neut % (Auto) Lymph % (Auto) [place] % (Auto) Eos % (Auto) Baso % (Auto) Lymph # (Auto) [place] # (Auto) Eos # (Auto) Baso # (Auto) Abs Immat Gran (auto) Absolute Neuts (auto) Absolute Nucleated RBC Nucleated RBC % (auto) PT INR APTT D-Dimer High Sensitivty Anion Gap Estim Creat Clear Calc Estimated GFR Random Glucose Lactic Acid 3.6 H* Lactic Acid F/U @ 2Hr Lactic Acid F/U @ 4Hr Calcium Troponin I High Sens 34.2 H B-Natriuretic Peptide 1662 H Urine Color Urine Appearance Urine pH Ur Specific [place] Urine Protein Urine Glucose (UA) Urine Ketones Urine Blood Urine Nitrite Ur Leukocyte Esterase Urine RBC Urine WBC Ur Squamous Epith Cells Urine Bacteria Hyaline Casts COVID-19 ([facility]) COVID-19 Clin Com 01/23/23 01/23/23 01/23/23 04:50 04:52 07:07 MCV MCH MCHC RDW Plt Count MPV Immature Gran % (Auto) Neut % (Auto) Lymph % (Auto) [place] % (Auto) Eos % (Auto) Baso % (Auto) Lymph # (Auto) [place] # (Auto) Eos # (Auto) Baso # (Auto) Abs Immat Gran (auto) Absolute Neuts (auto) Absolute Nucleated RBC Nucleated RBC % (auto) PT INR APTT D-Dimer High Sensitivty Anion Gap Estim Creat Clear Calc Estimated GFR Random Glucose Lactic Acid Lactic Acid F/U @ 2Hr Lactic Acid F/U @ 4Hr Calcium Troponin I High Sens 40.4 H B-Natriuretic Peptide Urine Color Yellow Urine Appearance Clear Urine pH 6.5 Ur Specific [place] 1.010 Urine Protein Negative Urine Glucose (UA) Negative Urine Ketones Negative Urine Blood Negative Urine Nitrite Negative Ur Leukocyte Esterase Large (3+) H Urine RBC 0-2 Urine WBC 21-50 H Ur Squamous Epith Cells 6-10 Urine Bacteria 1+ Hyaline Casts 0-2 COVID-19 ([facility]) Negative COVID-19 Clin Com See Note 01/23/23 01/23/23 07:07 09:35 MCV MCH MCHC RDW Plt Count MPV Immature Gran % (Auto) Neut % (Auto) Lymph % (Auto) [place] % (Auto) Eos % (Auto) Baso % (Auto) Lymph # (Auto) [place] # (Auto) Eos # (Auto) Baso # (Auto) Abs Immat Gran (auto) Absolute Neuts (auto) Absolute Nucleated RBC Nucleated RBC % (auto) PT INR APTT D-Dimer High Sensitivty Anion Gap Estim Creat Clear Calc Estimated GFR Random Glucose Lactic Acid Lactic Acid F/U @ 2Hr 4.2 H* Lactic Acid F/U @ 4Hr 3.8 H* Calcium Troponin I High Sens B-Natriuretic Peptide Urine Color Urine Appearance Urine pH Ur Specific [place] Urine Protein Urine Glucose (UA) Urine Ketones Urine Blood Urine Nitrite Ur Leukocyte Esterase Urine RBC Urine WBC Ur Squamous Epith Cells Urine Bacteria Hyaline Casts COVID-19 ([facility]) COVID-19 Clin Com Assessment and Plan (1) cardiomyopathy: Status: Acute (2) Acute cardiogenic pulmonary edema: Status: Acute (3) Asthma with acute exacerbation: Status: Acute Assessment and Plan: 32-year-old female past medical history of asthma presents the hospital with increased shortness of breath found to have likely cardiomyopathy ? acute dyspnea- ? although patient has history of asthma but has significant evidence of elevated BNP, evidence of? pulmonary edema on chest x-ray -? patient also has orthopnea and PND -? recently within the last 1 month -? given the? significantly elevated BNP, chest x-ray finding, and symptoms patient will be treated for acute CHF -? given high risk of DVT, will also obtain V/Q scan although PE less likely ? acute cardiomyopathy -? dyspnea, orthopnea, PND, elevated BNP, chest x-ray evidence of pulmonary edema -? will treat with Lasix, low-sodium diet, strict I&O, daily weight -? echocardiogram, -? cardiology consulted #? acute UTI -? has increased frequency -? will treat with IV antibiotics -? follow cultures #? history of asthma -? likely in exacerbation -? ? small amount of wheezing on exam -? DuoNeb p.r.n. ?DVT prophylaxis: Lovenox ongoing inpatient hospital stay for: possible acute pulmonary edema sec to cardiomyopathy-need iv diuretics and renal function and electrolyte monitoring, further management and monitoring Time Spent With Patient Time: Total time managing care of this patient today ____ minutes. Quality Stroke Does the patient have a stroke diagnosis?: No VTE Prior VTE?: No VTE Risk Level:: Medical - moderate - high VTE Device Contraindication: Treatment Not Indicated VTE Drug Contraindication: N/A - Med Ordered
[2023-01-23] MEDS: Acetaminophen 325 MG TABLET 650 MG PO (15:37)
--- NOTE | 2023-01-23 16:22 | PC.NURSE ---
pt c/o left leg cramping and pain - toes curling. medicated with PO Tylenol at this time.
[2023-01-23] MEDS: Spironolactone 25 MG TABLET 12.5 MG PO (18:33)
[2023-01-24] VITALS (7 sets, daily range): BP systolic 101–124; BP diastolic 62–70; PULSE 89–104; RESP 16–20; TEMP 36.1–37.1; O2SAT 95–98
[2023-01-24] MEDS: cefTRIAXone sodium 1 GM in 0.9 % Sodium Chloride 50 ML IV (06:05)
[2023-01-24] MEDS: Enoxaparin Sodium 40 MG/0.4 ML SYRINGE SUBCUT (06:05)
[2023-01-24 06:29] LABS: Alanine Aminotransferase 15 U/L (0-31); Albumin Level 3.9 g/dL (3.5-5.0); Alkaline Phosphatase 88 U/L (39-117); Anion Gap 16 (12-20); Aspartate Amino Transferase 22 U/L (5-31); Bilirubin Total 0.5 mg/dL (0.0-1.0); Blood Urea Nitrogen 20 mg/dL (9-16); Calcium 9.3 mg/dL (8.4-10.2); Carbon Dioxide 21 mmol/L (22-29); Chloride 104 mmol/L (96-108); Creatinine Clr Calc Pharmacy 77.8; Estimated Glomerular Filt Rate > 60; Glucose Random 107 mg/dL (60-115); Sodium 137 mmol/L (135-145); Total Protein 7.5 g/dL (6.5-8.0)
--- NOTE | 2023-01-24 08:24 | MHC.CM.PN ---
CM met with Patient at bedside. Patient lives in a house with her Fiance and 1 month old Daughter and she required no services nor DME [employer]. Home/self care is the goal and CM has initiated and will follow for dc planning. Patient is not Covid vax'd and her PC is Dr. Saravanan Carty.
[2023-01-24] MEDS: Sacubitril/Valsartan 24/26 1 TAB TABLET PO ×2 (08:31→19:21)
[2023-01-24] MEDS: Multivitamin TABLET 1 TAB PO (08:31)
[2023-01-24] MEDS: 0.9 % Sodium Chloride Flush 3 ML SYRINGE IVFLUSH ×3 (08:31→19:23)
[2023-01-24] MEDS: Furosemide 40 MG/4 ML VIAL IVPUSH (08:31)
[2023-01-24] MEDS: Spironolactone 25 MG TABLET 12.5 MG PO ×2 (08:32→18:04)
[2023-01-24 09:40] LABS: B Type Natriuretic Peptide 620 pg/mL (<100)
[2023-01-24] MEDS: carvediloL 3.125 MG TABLET PO ×2 (10:06→19:21)
[2023-01-24] MEDS: LORazepam 0.5 MG TABLET 0.25 MG PO (10:06)
--- NOTE | 2023-01-24 10:51 | P.PNCA_ITS ---
Subjective Subjective Date of Service: 01/24/23 Principal diagnosis: Congestive heart failure Interval history: Patient is feeling a lot better. Has diuresed although intake and output chart are inaccurate. Patient says she has been going to bathroom a lot. She has been starting Entresto and Aldactone and tolerating well. Blood pressures improved. Still remains tachycardic with sinus tachycardia. There is some component of anxiety. Review of Systems Constitutional: Reports no additional constitutional complaints Reports system reviewed and no additional complaints, except as documented Cardiovascular: Denies chest pain, Denies leg edema, Denies Loss of Consciousnes s, Reports dyspnea on exertion and Denies orthopnea Respiratory: Reports no additional respiratory complaints and Reports dyspnea on exertion Gastrointestinal: Reports no additional gastrointestinal complaints Reports system reviewed and no additional complaints, except as documented Psychiatric: Reports anxiety Physical Exam Vital Signs: Last Vital Signs Temp 96.9 F 01/24/23 07:27 Pulse 98 01/24/23 07:27 Resp 20 01/24/23 07:27 BP 124/70 01/24/23 07:27 Pulse Ox 97 01/24/23 07:27 O2 Del Method Nasal Cannula 01/24/23 07:27 O2 Flow Rate 3 01/24/23 07:27 BMI result Body Mass Index 27.4 Const General: cooperative, well developed, alert, awake, in distress mild and respiratory and anxious Nutritional Appearance: average body habitus Orientation/consciousness: patient oriented x3 Neck Neck: Yes trachea midline, Yes supple and Yes no JVD Resp Effort & Inspection: normal respiratory effort and respiratory distress Auscultation: rales on the right 1/[address] way up Cardio Jugular venous distension: JVD Rate: tachycardic Heart sounds: S1 normal heart sound present, S2 normal heart sound present, no click, Gallop heart sound present, no murmurs and no rubs GI Auscultation: normal bowel sounds Skin General skin exam: no rashes or lesions noted Neuro General: patient oriented x3 and no focal motor deficits Extrem General: Yes no clubbing, cyanosis or edema Objective Labs and Meds 01/23/23 02:41 01/24/23 05:59 Lab results: Laboratory Results - last 24 hr 01/23/23 01/24/23 01/24/23 02:41 05:59 05:59 Sodium 137 Potassium 4.0 Chloride 104 Carbon Dioxide 21 L Anion Gap 16 BUN 20 H Creatinine 0.88 Estim Creat Clear Calc 77.8 Estimated GFR > 60 Random Glucose 107 Calcium 9.3 Total Bilirubin 0.5 AST 22 ALT 15 Alkaline Phosphatase 88 B-Natriuretic Peptide 620 H Total Protein 7.5 Albumin 3.9 TSH 1.40 Imaging Radiologist's impression: Impressions Pulmonary Perfusion Imaging 01/23/23 14:00 IMPRESSION: Normal perfusion scan. Suspicion for pulmonary emboli is low. Chest x-ray is more suggestive of multifocal pneumonia. Is patient Covid negative ?. 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 Clinically has improved significantly. Better intake and output chart needs to be pursued. Continue IV diuresis with Lasix for 1 more day. Continue Entresto and Aldactone and would add carvedilol therapy for neurohormonal modulation and rate control as well. Antianxiety therapy to be provided. Out of bed to chair. CHF education. Follow-up BMP and BNP tomorrow If remains stable and feeling better may discharge home tomorrow with close outpatient follow-up. Will continue to follow with you Time Spent With Patient Time: Total time managing care of this patient today ____ minutes. Progress Note: Quality Stroke Does the patient have a stroke diagnosis?: No Procedures Date of Service Date of Service: 01/24/23
[2023-01-24] MEDS: Albuterol/Iprat 2.5/0.5MG 3 ML AMPUL.NEB INHALE (15:09)
[2023-01-24] MEDS: Omeprazole 40 MG CAPSULE.DR PO (16:06)
[2023-01-25 03:56] VITALS: BP 98/56; PULSE 75; RESP 16; TEMP 36.1; O2SAT 95
[2023-01-25] MEDS: Enoxaparin Sodium 40 MG/0.4 ML SYRINGE SUBCUT (05:47)
[2023-01-25] MEDS: cefTRIAXone sodium 1 GM in 0.9 % Sodium Chloride 50 ML IV (05:49)
[2023-01-25 06:46] LABS: Anion Gap 13 (12-20); Blood Urea Nitrogen 22 mg/dL (9-16); Carbon Dioxide 23 mmol/L (22-29); Chloride 104 mmol/L (96-108); Creatinine Clr Calc Pharmacy 86.6; Estimated Glomerular Filt Rate > 60; Glucose Random 94 mg/dL (60-115); Potassium 4.2 mmol/L (3.3-5.1); Sodium 136 mmol/L (135-145)
[2023-01-25 06:57] LABS: B Type Natriuretic Peptide 314 pg/mL (<100)
[2023-01-25 07:25] VITALS: BP 108/62; PULSE 89; RESP 16; TEMP 37; O2SAT 97
[2023-01-25] MEDS: Sacubitril/Valsartan 24/26 1 TAB TABLET PO (08:22)
[2023-01-25] MEDS: carvediloL 3.125 MG TABLET PO (08:22)
[2023-01-25] MEDS: Multivitamin TABLET 1 TAB PO (08:22)
[2023-01-25] MEDS: Spironolactone 25 MG TABLET 12.5 MG PO (08:23)
[2023-01-25] MEDS: 0.9 % Sodium Chloride Flush 3 ML SYRINGE IVFLUSH (08:24)
[2023-01-25] MEDS: Furosemide 40 MG TABLET PO (08:41)
--- NOTE | 2023-01-25 11:07 | P.DS_ITS ---
DS: Providers Provider Date of Service: 01/25/23 Date of admission: 01/23/23 06:23 Date of discharge: 01/25/23 Primary care physician: Saravanan Carty MD Consults: 01/23/23 06:22 Consult to Cardiology Routine Consulting Provider: [facility] [place] Cardi[facility] Services Reason for consultation: cardiomyopathy Has provider been notified: No Attending physician on discharge: Sathya Naranjo Discharging clinician: Sathya Naranjo DS: Diagnosis Discharge Diagnosis (1) cardiomyopathy: Status: Acute (2) Acute cardiogenic pulmonary edema: Status: Acute (3) Asthma with acute exacerbation: Status: Acute (4) CHF (congestive heart failure): Status: Acute DS: Summary Hospital Course Hospital Course: 32-year-old female past medical history of asthma that recently gave presents the hospital with shortness of breath.? Patient reports that she is 1 month . ? she started feeling shortness of breath starting Thursday worsening over the next several days.? She states that she thought it was her asthma but was not getting better and now having significant shortness of breath? even at rest, she has orthopnea, no lower extremity edema.? She reports that during in the last trimester she did have hypertension but he was not treated.? She also was supposed to have a visit today but was too short of breath and postponed it to next week.? She reports no chest pain, has a cough that is nonproductive, no palpitations, no abdominal pain, no nausea or vomiting, no diarrhea constipation, she does have urinary frequency with no dysuria. She is currently not breast-feeding ?on arrival to the ED patient noted to have tachycardia, tachypnea, slightly elevated blood pressure in the 140s over 90s Labs are significant for WBC count 9.7, BNP of 1662, initial troponin of 34.2 UA is positive for leukocyte Estrace and WBC ?x-ray showed diffuse bilateral streaky and patchy airspace opacities compatible with multifocal pneumonia or pulmonary edema ?patient started on IV Lasix and will be admitted for further management. hospital course: Patient came for shortness of breath, orthopnea and PND: Found to have acute pulmonary edema possible related toAcute congestive heart failure related to peripartum cardiomyopathy with moderate to severe LV systolic dysfunction- patient was started on IV Lasix-diuresed well, BNP improving: Patient will be going home Lasix, spironolactone, Entresto, Coreg. In addition patient has possible UTI: Urine culture-prelimnary(seems mixed krysta -possible contaminant) and blood cultures negative @48hrs, patient is afebrile, no leukocytosis. plan: continue Lasix 20 mg po daily, spironolactone, Entresto, Coreg. follow up renal function and electerolytes . complete course of microbid for 5 days for uti(d/w urogynecology physician recomended microbid). chf education given , call outpatient PCP if weight gain 2 lb or more/week. Above management discussed with patient and her in detail length they both understand and in agreement with the plan. Time Spent with Patient Time attestation: Total time managing care of this patient today ____ minutes. Discharge coordination time: Greater than 30 minutes Quality: Safe Use of Opioids Does Pt have an Active Cancer Diagnosis on the Problem List?: No Quality: Stroke Does the patient have a stroke diagnosis?: No Physical Exam Vital Signs: Vital Signs: Last Vital Signs Temp 98.6 F 01/25/23 07:25 Pulse 89 01/25/23 07:25 Resp 16 01/25/23 07:25 BP 108/62 01/25/23 07:25 Pulse Ox 97 01/25/23 07:25 O2 Del Method Room Air 01/25/23 07:25 O2 Flow Rate 3 01/24/23 07:27 BMI result Body Mass Index 27.4 Appearance: Alert.? Oriented X3.? not in distress.? cvs: [id number], [id number] ,carcles at bases. res: clear to auscultation ,no rhonchii or wheezing abd: no rebound or guarding ,nt, bs present. ext pulses present , no cyanosis . neuro: axo3 , nonfocal. DS: Data Data Completed and Pending Labs on day of discharge: Laboratory Results - last 24 hr 01/25/23 01/25/23 06:04 06:04 Sodium 136 Potassium 4.2 Chloride 104 Carbon Dioxide 23 Anion Gap 13 BUN 22 H Creatinine 0.79 Estim Creat Clear Calc 86.6 Estimated GFR > 60 Random Glucose 94 Calcium 9.0 B-Natriuretic Peptide 314 H Preliminary micro results at discharge 01/23/23 04:50 Blood Culture - Preliminary Blood - Venous No growth after 48 hours. 01/23/23 04:50 Blood Culture - Preliminary Blood - Venous No growth after 48 hours. Imaging Chest x-ray: Radiologist's impression: ITS Impressions Chest X-Ray 01/23/23 02:36 IMPRESSION: Diffuse bilateral streaky and patchy airspace opacities compatible with multifocal pneumonia, or pulmonary edema. Pulmonary Perfusion Imaging 01/23/23 14:00 IMPRESSION: Normal perfusion scan. Suspicion for pulmonary emboli is low. Discharge Plan Discharge Anticipated Discharge Date/Time: 01/25/23 10:54 Patient Disposition: Home, Self-Care Discharge Diagnosis: acute pulmonary edema, cardiomyopathy Referrals: Saravanan Carty MD [Primary Care Provider] - 1 Week Discharge Medications: New spironolactone 25 mg Tablet 12.5 mg PO BID@0900,1800 Qty: 30 0RF Protocol: Hold for SBP< HOLD for SBP < : 90 carvedilol 3.125 mg Tablet 3.125 mg PO BID Qty: 60 0RF Protocol: Hold for SBP/HR < HOLD for SBP < : 90 HOLD for HR < : 60 Entresto 24-26 mg Tablet 1 tab PO BID Qty: 30 0RF Protocol: Hold for SBP< HOLD for SBP < : 90 nitrofurantoin monohyd/m-cryst [Macrobid] 100 mg capsule 100 mg PO BID Qty: 10 0RF Rx Instructions: must administer with a meal/food furosemide [Lasix] 20 mg tablet 20 mg PO DAILY Qty: 40 0RF Continued omeprazole 40 mg capsule,delayed release(DR/EC) 40 mg PO DAILY@1630 PNV cmb#95-ferrous fumarate-FA [] 28 mg iron- 800 mcg tablet 1 tab PO DAILY Discharge Orders: Discharge Order (Routine); Ordered 01/25/23 Ordered By: Sathya Naranjo Diet: Advance to usual diet Activity on Discharge: As tolerated Stand Alone Forms: Patient Portal Discharge page Care Plan Goals: Patient came for shortness of breath, orthopnea and PND: Found to have acute pulmonary edema possible related to cardiomyopathy-patient was started on IV Lasix-diuresed well, BNP improving: Patient will be going home Lasix, spironolactone, Entresto, Coreg. In addition patient has possible UTI: Urine culture-prelimnary and blood cultures negative @48hrs, patient is afebrile, no leukocytosis. Health Concerns: continue Lasix 20 mg po daily, spironolactone, Entresto, Coreg. follow up renal function and electerolytes . complete course of microbid for 5 days for uti. chf education given , call outpatient PCP if weight gain 2 lb or more/week. Plan of Treatment: as above. Assessment: as above. Patient Instructions: Pulmonary Edema (DC)
--- NOTE | 2023-01-25 11:17 | MHC.CM.PN ---
Patient has been medically cleared for dc to home today, self care.
[2023-01-25 11:30] VITALS: BP 95/58; PULSE 85; RESP 20; TEMP 36.3; O2SAT 98
--- NOTE | 2023-01-25 12:42 | PM.PNCARD ---
Subjective Subjective Date of Service: 01/25/23 Principal diagnosis: Congestive heart failure Interval history: Patient is feeling a lot better. Heart rate is better controlled. Appears a little anxious. No lightheadedness or syncope. Breathing is much improved Review of Systems Constitutional: Reports no additional constitutional complaints Physical Exam Vital Signs: Last Vital Signs Temp 97.4 F 01/25/23 11:30 Pulse 85 01/25/23 11:30 Resp 20 01/25/23 11:30 BP 95/58 L 01/25/23 11:30 Pulse Ox 98 01/25/23 11:30 O2 Del Method Room Air 01/25/23 11:30 O2 Flow Rate 3 01/24/23 07:27 BMI result Body Mass Index 27.4 Const General: cooperative, well developed, alert, awake, in distress mild and respiratory and anxious Nutritional Appearance: average body habitus Orientation/consciousness: patient oriented x3 Neck Neck: Yes trachea midline, Yes supple and Yes no JVD Resp Effort & Inspection: normal respiratory effort and respiratory distress Auscultation: rales on the right 1/[address] up Cardio Jugular venous distension: JVD Rate: tachycardic Heart sounds: S1 normal heart sound present, S2 normal heart sound present, no click, Gallop heart sound present, no murmurs and no rubs GI Auscultation: normal bowel sounds Skin General skin exam: no rashes or lesions noted Neuro General: patient oriented x3 and no focal motor deficits Extrem General: Yes no clubbing, cyanosis or edema Objective Labs and Meds 01/23/23 02:41 01/25/23 06:04 Lab results: Laboratory Results - last 24 hr 01/25/23 01/25/23 06:04 06:04 Sodium 136 Potassium 4.2 Chloride 104 Carbon Dioxide 23 Anion Gap 13 BUN 22 H Creatinine 0.79 Estim Creat Clear Calc 86.6 Estimated GFR > 60 Random Glucose 94 Calcium 9.0 B-Natriuretic Peptide 314 H Progress Note: A&P Assessment and plan (1) Acute cardiogenic pulmonary edema: Status: Acute Assessment and Plan: Acute systolic heart failure which has much improved with medical therapy. Clinically appears euvolemic at this point time. Can switch to p.o. Lasix 20 mg daily. Heart failure education was provided. Additional diuretics as need be. Daily weight monitoring avoidance of salt loading was discussed. Avoidance of caffeinated products was discussed. Continue current neurohormonal modulation with carvedilol, Entresto as well as Aldactone therapy. Cannot maximize medications as now because of the lower blood pressure. Advised to monitor blood pressure at home and maintain a log. Will follow up in the clinic in 7-10 days. I think patient can be discharged home at this point time. Thank you for allowing me to partake in her care Time Spent With Patient Time: Total time managing care of this patient today ____ minutes. Progress Note: Quality Stroke Does the patient have a stroke diagnosis?: No Procedures Date of Service Date of Service: 01/25/23
== END 2023-01-25 13:49 | disposition home or self-care (01) | DRG 561 ==
LOC: HO.ED 05:17 → HO.EDOVER 06:31 → HO.IMC 14:24
PROVIDERS: Admitting Provider Internal Medicine; Emergency Provider Internal Medicine; PCP Internal Medicine; Visit Provider Internal Medicine
DX: O90.3 Peripartum cardiomyopathy (principal); J45.901 Unspecified asthma with (acute) exacerbation; O90.89 Other complications of the puerperium, not elsewhere classified; O86.20 Urinary tract infection following delivery, unspecified; N39.0 Urinary tract infection, site not specified; Z20.822 Contact with and (suspected) exposure to COVID-19
CPT/HCPCS: 36415; 71045; 78580; 80048; 80053; 81001; 83605; 83880; 84443; 84484; 85025; 85379; 85610; 85730; 87040; 87086; 87635; 93005; 93306; 93356; 94640; 99285; A9540; J0696; J1650; J1940; J2930; J3475

== ENCOUNTER 2023-02-04 14:53 | Outpatient (REF) | payer OTHER, SELFPAY ==
[2023-02-04 16:32] LABS: B Type Natriuretic Peptide 83 pg/mL (<100)
[2023-02-04 17:02] LABS: Anion Gap 10 (12-20); Blood Urea Nitrogen 21 mg/dL (9-16); Carbon Dioxide 26 mmol/L (22-29); Chloride 103 mmol/L (96-108); Estimated Glomerular Filt Rate > 60; Glucose Random 87 mg/dL (60-115); Potassium 4.4 mmol/L (3.3-5.1); Sodium 135 mmol/L (135-145)
== END 2023-02-04 14:54 | disposition home or self-care (01) ==
LOC: CF 14:53
PROVIDERS: PCP Obstetrics & Gynecology; Visit Provider Internal Medicine Cardiovascular Disease
DX: I50.20 Unspecified systolic (congestive) heart failure (principal); Z79.899 Other long term (current) drug therapy
CPT/HCPCS: 36415; 80048; 83880; 99212

== ENCOUNTER 2023-03-05 08:43 | Outpatient (AMB) | payer OTHER, SELFPAY ==
[2023-03-05 08:57] VITALS: BP 100/70; PULSE 67; BMI 28.4
--- NOTE | 2023-03-05 08:57 | MHC.OFFVIS ---
Intake Vital Signs 03/05/23 08:57 Height 5 ft Weight 145 lb 8.081 oz BMI 28.4 BP 100/70 Blood Pressure Location Lt brachial Position Sitting Pulse 67 Pulse Source Pulse Oximeter Intake Visit Reasons: 1 mth f/up Intake Note: 1 month f/u Allergies No Known Allergies Allergy (Verified 03/05/23 09:02) Medication List - Last Reconciled 03/05/23 by Nara Marrufo [employer] albuterol sulfate 90 mcg/actuation 2 puffs inhalation Q6H PRN carvedilol (Coreg) 6.25 mg PO BID furosemide 20 mg PO .3 times per week 30 days PNV cmb#95-ferrous fumarate-FA 28 mg iron- 800 mcg () 1 tab PO DAILY sacubitril-valsartan 24-26 mg (Entresto) 1 tab PO BID spironolactone 12.5 mg See Protocol PO BID@0900,1800 90 days HPI 1 mth f/up HPI Details Darcie is a 32-year-old female with past medical history asthma who recently had new finding of Congestive heart failure, cardiomyopathy and has been started on appropriate medical management and now presents for follow-up. Today she reports she has been feeling well since her last visit a month ago. She does notice some mild shortness of breath at times but is unable to differentiate this from her usual asthma. She says if she uses her inhaler it does help. She has some mild fatigue but does have a 2-month-old infant that she is caring for. No chest discomfort at rest or with activity. No heart palpitations, dizziness, presyncope, syncope, PND, orthopnea or edema. She has gained a little weight and feels like she is bloated from her monthly cycle. She will be starting cardiac rehab today. Taking all meds as directed and reports no significant side effects. Significant other is present. [facility] Medical History Acute cardiogenic pulmonary edema Asthma Peripartum cardiomyopathy Surgical History No pertinent past surgical history Social History Household Members: Significant Other Household Members Other:: daughter Housing: House Do you presently have visiting nurse or other home services: No Alcohol intake: never Patient Tobacco Use Status: Never used Tobacco service: No Review of Systems Const All systems reviewed & are unremarkable except as noted in HPI and below ENT Reports dizziness Card Denies chest pain, Denies chest pain at rest, Denies chest pain with activity, Denies rapid heart rate, Denies pedal edema, Denies edema, Denies leg edema, Denies lightheadedness, Denies palpitations, Denies dyspnea, Denies dyspnea on exertion and Denies orthopnea Resp Denies cough, Denies dyspnea and Denies dyspnea on exertion GI Denies hematochezia and Denies change in stool character Musc Denies abnormal gait, Reports limited range of motion, Reports muscle cramps, Denies muscle weakness, Denies numbness, Denies radiating pain into limb, Denies stiffness and Denies tingling Neuro Denies abnormal gait, Reports dizziness, Denies numbness and Denies tingling Endo Denies palpitations Physical Exam Vital Signs: Last Vital Signs Pulse 67 03/05/23 08:57 BP 100/70 03/05/23 08:57 BMI result Body Mass Index 28.4 Const General: cooperative, healthy appearing, comfortable and no acute distress Orientation/consciousness: patient oriented x3 Neck Neck: Yes normal visual inspection Resp Effort & Inspection: normal respiratory effort Auscultation: clear to auscultation bilaterally, no crackles, no rales, no rhonchi and no wheezes Cardio Jugular venous distension: no JVD Rate: regular rate Rhythm: regular rhythm Heart sounds: S1 normal heart sound present, S2 normal heart sound present, no gallops, no murmurs and no rubs Neuro General: patient oriented x3 Extrem General: Yes normal to inspection Psych Appearance: grossly normal Mental Status: mental status grossly normal Speech and movement: Normal speech and movement present Assessment & Plan Assessment & Plan (1) Peripartum cardiomyopathy: Code(s): O90.3 - Peripartum cardiomyopathy Plan: [facility] [place] admission last month with shortness of breath, heart failure symptoms. Echocardiogram showed EF 30-35%, mild dilation of the LA, trace AR, mild MR, moderate left pleural effusion. She was 1 month at that time. She was thought to have peripartum cardiomyopathy. She was diuresed and started on appropriate medical management including carvedilol, Aldactone, Entresto, Lasix. Today she reports she has been feeling well overall. She does have some shortness of breath at times which she is unsure if it is related to asthma or not. She has gained 7 lb since her last visit here a month ago but does not appear fluid overloaded on examination. No rales, orthopnea, edema noted. Findings of cardiomyopathy reviewed with her. She has a cardiac MRI scheduled for 04/10/2023. Blood pressure currently 100/70, asymptomatic. Unable to further titrate medications. Will continue carvedilol 6.25 mg b.i.d., Entresto, Aldactone. She is currently taking Lasix 20 mg 3 times weekly. For the next week instructed her to take daily to assist with weight loss if related to fluid retention. Spent time reviewing signs and symptoms of decompensated heart failure. Activity as tolerated. She is starting cardiac rehab today. Cardiology follow-up once MRI results are available, approximately 2 months, sooner if needed. (2) Heart failure with reduced ejection fraction: Code(s): I50.20 - Unspecified systolic (congestive) heart failure Coding Level of Care Code Est Pt Level 4 (02132) Diagnoses Peripartum cardiomyopathy O90.3 Heart failure with reduced ejection fraction I50.20 Time Spent (min) 26 Comment Chart review, documentation, interview, assessment
== END 2023-03-05 09:30 | disposition home or self-care (01) ==
PROVIDERS: PCP Obstetrics & Gynecology; Visit Provider Nurse Practitioner Family
DX: O90.3 Peripartum cardiomyopathy (principal); I50.20 Unspecified systolic (congestive) heart failure
CPT/HCPCS: 99214

== ENCOUNTER → 2023-03-05 08:43 | Outpatient (BNVA) | payer OTHER, SELFPAY | PROVIDERS: PCP Obstetrics & Gynecology; Visit Provider Nurse Practitioner Family | DX: O90.3 Peripartum cardiomyopathy (principal); I50.20 Unspecified systolic (congestive) heart failure | CPT/HCPCS: 99212 ==

== ENCOUNTER 2023-03-11 12:44 | Outpatient (REF) | payer OTHER, SELFPAY ==
[2023-03-04 13:55] VITALS: BP 132/62; BP 88/68; BMI 28.7
[2023-03-11 14:36] LABS: Anion Gap 16 (12-20); Blood Urea Nitrogen 12 mg/dL (9-16); Carbon Dioxide 23 mmol/L (22-29); Chloride 104 mmol/L (96-108); Estimated Glomerular Filt Rate > 60; Glucose Random 81 mg/dL (60-115); Potassium 4.5 mmol/L (3.3-5.1); Sodium 138 mmol/L (135-145)
[2023-03-11 15:37] LABS: B Type Natriuretic Peptide 58 pg/mL (<100)
== END 2023-03-11 12:45 | disposition home or self-care (01) ==
LOC: HO.LAB 12:44
PROVIDERS: Nurse Practitioner Family; Visit Provider Internal Medicine Cardiovascular Disease
DX: O90.3 Peripartum cardiomyopathy (principal)
CPT/HCPCS: 36415; 80048; 83880

== ENCOUNTER 2023-04-03 10:20 | Outpatient (AMB) | payer OTHER, SELFPAY ==
[2023-03-04 13:55] VITALS: BP 132/62; BP 88/68; BMI 28.7
--- NOTE | 2023-04-03 10:22 | A.OFFVIS_ITS ---
Intake Vital Signs 04/03/23 10:23 Height 5 ft Weight 147 lb 11.355 oz BMI 28.8 BP 102/72 Blood Pressure Location Lt brachial Position Sitting Pulse 60 Intake Visit Reasons: 4 wk f/up per DC/ns Intake Note: 4 wk f/up pec dc ns Design Engineer Products Required: No Allergies No Known Allergies Allergy (Verified 04/03/23 10:32) Medication List - Last Reconciled 04/03/23 by Nara Marrufo, GEOPHYSICAL DRAFTER-C albuterol sulfate 90 mcg/actuation 2 puffs inhalation Q6H PRN carvedilol (Coreg) 6.25 mg PO BID furosemide 20 mg PO .3 times per week 30 days PNV cmb#95-ferrous fumarate-FA 28 mg iron- 800 mcg () 1 tab PO DAILY sacubitril-valsartan 24-26 mg (Entresto) 1 tab PO BID spironolactone 12.5 mg See Protocol PO BID@0900,1800 90 days HPI 4 wk f/up per DC/ns HPI Details Darcie is a 32-year-old female with past medical history asthma who recently had new finding of Congestive heart failure, cardiomyopathy and has been started on appropriate medical management and now presents for follow-up. Today she reports that she has been attending cardiac rehab routinely. When she goes they tell her her blood pressure is low. She has had some lightheadedness with quick position changes and bending. No presyncope, syncope, falls. Her blood pressure does go up at rehab with physical activity. She is taking her medications as directed including Lasix 3 times weekly. She states that her breathing has been good. On last visit she reported some shortness of breath which she related to asthma. No PND, orthopnea or edema. Has been busy with the care of her young child. Significant other is present today. [facility] Medical History Acute cardiogenic pulmonary edema Asthma Peripartum cardiomyopathy Surgical History No pertinent past surgical history Social History Household Members: Significant Other Household Members Other:: daughter Housing: House Do you presently have visiting nurse or other home services: No Alcohol intake: never Patient Tobacco Use Status: Never used Tobacco service: No Review of Systems Const All systems reviewed & are unremarkable except as noted in HPI and below ENT Reports dizziness (At times with position changes) Card Denies chest pain, Denies chest pain at rest, Denies chest pain with activity, Denies rapid heart rate, Denies pedal edema, Denies edema, Denies leg edema, Denies lightheadedness, Denies palpitations, Denies dyspnea, Denies dyspnea on exertion and Denies orthopnea Resp Denies cough, Denies dyspnea and Denies dyspnea on exertion GI Denies hematochezia and Denies change in stool character Musc Denies abnormal gait, Denies limited range of motion, Denies muscle cramps, Denies muscle weakness, Denies numbness, Denies radiating pain into limb, Denies stiffness and Denies tingling Neuro Denies abnormal gait, Reports dizziness (At times with position changes), Denies numbness and Denies tingling Endo Denies palpitations Physical Exam Vital Signs: Last Vital Signs Pulse 60 04/03/23 10:23 BP 102/72 04/03/23 10:23 BMI result Body Mass Index 28.8 Const General: cooperative, healthy appearing, comfortable and no acute distress Orientation/consciousness: patient oriented x3 Neck Neck: Yes normal visual inspection Resp Effort & Inspection: normal respiratory effort Auscultation: clear to auscultation bilaterally, no crackles, no rales, no rhonchi and no wheezes Cardio Jugular venous distension: no JVD Rate: regular rate Rhythm: regular rhythm Heart sounds: S1 normal heart sound present, S2 normal heart sound present, no murmurs and no rubs GI Inspection: Yes normal to inspection Neuro General: patient oriented x3 Extrem General: Yes normal to inspection Psych Appearance: grossly normal Mental Status: mental status grossly normal Speech and movement: Normal speech and movement present Office Procedures EKG Details: Today, read by me, sinus rhythm, junctional beats cant be excluded, T wave abnormal inferiorly and lateral leads, rate 60, QTc 410ms [id number], Complete Assessment & Plan Assessment & Plan (1) Peripartum cardiomyopathy: Comment: [email or web address] Code(s): O90.3 - Peripartum cardiomyopathy Plan: [facility] admission in January 2023 with shortness of breath, heart failure symptoms. Echocardiogram showed EF 30-35%, mild dilation of the LA, trace AR, mild MR, m oderate left pleural effusion. She was 1 month at that time. She was thought to have peripartum cardiomyopathy. She was diuresed and started on appropriate medical management including carvedilol, Aldactone, Entresto, Lasix. On last visit she reported some shortness of breath which she related to asthma. She was taking Lasix 3 times weekly. Labs were done on 03/11/2023 showing potassium 4.5, creatinine 0.76, BNP 58. Today she reports that breathing has been good. She has had some positional lightheadedness. No presyncope, syncope, falls. She has been attending cardiac rehab and states that when she goes each time they tell her her blood pressure is low but it does come up with physical activity. Blood pressure today 102/72, heart rate 60. EKG is showing mainly junctional rhythm with some P waves visible, T-wave abnormality inferior lateral leads, rate 60. Reviewed with Dr. Ayala. Will reduce carvedilol down to 3.125 mg b.i.d.. Will obtain Holter monitor. She has no clinical signs indicating heart failure and last BNP was normal. Will have her change Lasix to as needed. Close monitoring of weight reviewed and instructed to restart 3 time weekly Lasix if needed for weight gain of 5 lb. Cardiac MRI was initially planned however canceled at the direction of Dr. Hernandez her primary ribbon hanking machine operator, she is scheduled for a limited echocardiogram on 04/25/2023, which will be 3 months from the start of medical management. Will continue carvedilol at new lower dose, Entresto, Aldactone. Spent time reviewing signs and symptoms of decompensated heart failure. Activity as tolerated. Continue cardiac rehab. Plan to call her with echo results. Cardiology OV 2 months, sooner if needed. (2) Heart failure with reduced ejection fraction: Code(s): I50.20 - Unspecified systolic (congestive) heart failure (3) Junctional escape beats: Code(s): I49.49 - Other premature depolarization Plan: EKG today with concern for junctional beats. Some P-waves are visible however junctional rhythm can not be entirely excluded. Asymptomatic. Heart rate 60 and blood pressure running low. Will reduce carvedilol to 3.125 mg b.i.d.. Obtaining Holter monitor. Orders: Orders ECG 3 day holter monitor Today I49.49 - Other premature depolarization, I50.20 - Unspecified systolic (congestive) heart failure Medications: New carvedilol must administer with a meal/food 3.125 mg PO BID 60 tabs 5RF Discontinued carvedilol (Coreg) must administer with a meal/food Discontinued Reason: Doctor's Order 6.25 mg PO BID 60 tabs 4RF Coding Level of Care Code Est Pt Level 4 (03157) Diagnoses Peripartum cardiomyopathy O90.3 Heart failure with reduced ejection fraction I50.20 Junctional escape beats I49.49 CPT Codes EKG - CPT: 43747-[id number], Complete ([id number]) Time Spent (min) 26 Comment Chart review, documentation, interview, assessment
[2023-04-03 10:23] VITALS: BP 102/72; PULSE 60; BMI 28.8
== END 2023-04-03 11:41 | disposition home or self-care (01) ==
PROVIDERS: PCP Obstetrics & Gynecology; Visit Provider Nurse Practitioner Family
DX: O90.3 Peripartum cardiomyopathy (principal); I50.20 Unspecified systolic (congestive) heart failure; I49.49 Other premature depolarization
CPT/HCPCS: 93010; 99214

== ENCOUNTER → 2023-04-03 10:20 | Outpatient (BNVA) | payer OTHER, SELFPAY ==
[2023-03-04 13:55] VITALS: BP 132/62; BP 88/68; BMI 28.7
== END ==
PROVIDERS: PCP Obstetrics & Gynecology; Visit Provider Nurse Practitioner Family
DX: O90.3 Peripartum cardiomyopathy (principal); I50.20 Unspecified systolic (congestive) heart failure; I49.49 Other premature depolarization; Z79.899 Other long term (current) drug therapy
CPT/HCPCS: 93005; 99212

== ENCOUNTER → 2023-04-15 13:18 | Outpatient (REF) | payer OTHER, SELFPAY ==
[2023-03-04 13:55] VITALS: BP 132/62; BP 88/68; BMI 28.7
--- NOTE | 2023-04-15 13:21 | HM_ITS ---
Conclusion: 1. Patient was monitored for total period of 3 days 2. Baseline was normal sinus rhythm with average heart of 79 beats per minute 3. No significant arrhythmias detected 4. No significant pauses noted 5. Patient marked the counter 1 time without reporting up symptom in the diary correlating with normal sinus rhythm MTDD
== END ==
LOC: HO.CARD 13:18
PROVIDERS: Visit Provider Nurse Practitioner Family
DX: I49.49 Other premature depolarization (principal); I50.20 Unspecified systolic (congestive) heart failure
CPT/HCPCS: 93242

== ENCOUNTER → 2023-04-15 13:21 | Outpatient (BNV) | payer OTHER, SELFPAY ==
[2023-03-04 13:55] VITALS: BP 132/62; BP 88/68; BMI 28.7
== END ==
PROVIDERS: Visit Provider Internal Medicine Cardiovascular Disease
DX: I49.49 Other premature depolarization (principal)
CPT/HCPCS: 93244

== ENCOUNTER → 2023-04-21 11:06 | Outpatient (REF) | payer OTHER, SELFPAY ==
--- NOTE | 2023-04-21 11:09 | CA_ITS ---
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 The visually estimated ejection fraction is between 35-40%. Findings Left Ventricle Normal left ventricular cavity size. The left ventricular systolic function is moderately decreased. The visually estimated ejection fraction is between 35-40%. There is mild global hypokinesis. LV peak GLS -14.9%. Prior Study Comparison Changes noted compared to prior study dated: 01/23/2023. Marginally higher LVEF. Change in LV strain, but not clear if just technical. Measurements 2D Linear Measurements IVSd: 0.50 0.6-0.9/0.6-1.0 cm LVIDd: 5.30 3.9-5.3/4.2-5.9 cm LVIDd Index: 3.21 2.4-3.2/2.2-3.1 cm/m2 LVIDs: 4.20 2.0-3.6 cm LVPWd: 0.80 0.7-1.1 cm LV Mass: 144.16 67-162/88-224 g LV Mass Index: 87.37 43-95/49-115 g/m2 LVOT Diam: 2.10 3.0+(-)1.3 cm 2D Systolic Function EF 4C: 48.30 >55% EF 2C: 47.80 >55% EF BiP: 47.90 >55% LVOT LVOT Pk Juve: 0.97 LVOT Mn Juve: 0.71 LVOT VTI: 0.20 LVOT Pk Grad: 4.00 LVOT Mn Grad: 2.00 LVOT Diam: 2.10 LVOT Area: 3.46 Updated in Other Vendor System with Status of Final Roni Ayala MD electronically signed on 04/22/2023 12:39:37 PM with status of Final
== END ==
LOC: HO.CARD 11:06
PROVIDERS: PCP Obstetrics & Gynecology; Visit Provider Internal Medicine Cardiovascular Disease
DX: O90.3 Peripartum cardiomyopathy (principal); I50.20 Unspecified systolic (congestive) heart failure
CPT/HCPCS: 93308; 93356

== ENCOUNTER → 2023-04-21 11:09 | Outpatient (BNV) | payer OTHER, SELFPAY ==
[2023-03-04 13:55] VITALS: BP 132/62; BP 88/68; BMI 28.7
== END ==
PROVIDERS: PCP Obstetrics & Gynecology; Visit Provider Internal Medicine
DX: I50.20 Unspecified systolic (congestive) heart failure (principal)
CPT/HCPCS: 93308

== ENCOUNTER 2023-06-01 14:18 | Outpatient (AMB) | payer OTHER, SELFPAY ==
[2023-03-04 13:55] VITALS: BP 132/62; BP 88/68; BMI 28.7
--- NOTE | 2023-06-01 14:20 | A.OFFVIS_ITS ---
Intake Vital Signs 06/01/23 14:21 Height 5 ft Weight 152 lb 1.903 oz BMI 29.7 BP 110/70 Blood Pressure Location Lt brachial Position Sitting Pulse 62 Intake Visit Reasons: follow up Intake Note: Follow-up feeling good Exercise Equipment Repair Technician Required: No Allergies No Known Allergies Allergy (Verified 04/03/23 10:32) Medication List - Last Reconciled 06/01/23 by Manuel Hernandez MD albuterol sulfate 90 mcg/actuation 2 puffs inhalation Q6H PRN carvedilol 3.125 mg PO BID sacubitril-valsartan 24-26 mg (Entresto) 1 tab PO BID spironolactone 12.5 mg See Protocol PO BID@0900,1800 90 days HPI HPI Comments History of Present Illness Details Darcie comes for follow-up. She has been doing very well. She is currently not having any symptoms suggestive heart failure. She continues to participate in phase 2 cardiac rehabilitation. She is back to work. Last echocardiogram shows improvement in LV ejection fraction 35-40%. She is taking all her medications. Currently not on any diuretic regimen. No weight gain, orthopnea, PND, leg edema. No lightheadedness, syncope. Holter monitor does not show any significant slow heart rate. [facility] Medical History Peripartum cardiomyopathy Asthma Acute cardiogenic pulmonary edema Surgical History No pertinent past surgical history Social History Household Members: Significant Other Household Members Other:: daughter Housing: House Do you presently have visiting nurse or other home services: No Alcohol intake: never Patient Tobacco Use Status: Never used Tobacco service: No Review of Systems Const All systems reviewed & are unremarkable except as noted in HPI and below ENT Reports dizziness (At times with position changes) Card Denies chest pain, Denies chest pain at rest, Denies chest pain with activity, Denies rapid heart rate, Denies pedal edema, Denies edema, Denies leg edema, Denies lightheadedness, Denies palpitations, Denies dyspnea, Denies dyspnea on exertion and Denies orthopnea Resp Denies cough, Denies dyspnea and Denies dyspnea on exertion GI Denies hematochezia and Denies change in stool character Musc Denies abnormal gait, Denies limited range of motion, Denies muscle cramps, Denies muscle weakness, Denies numbness, Denies radiating pain into limb, Denies stiffness and Denies tingling Neuro Denies abnormal gait, Reports dizziness (At times with position changes), Denies numbness and Denies tingling Endo Denies palpitations Physical Exam Vital Signs: Last Vital Signs Pulse 62 06/01/23 14:21 BP 110/70 06/01/23 14:21 BMI result Body Mass Index 29.7 Const General: cooperative, healthy appearing, comfortable and no acute distress Orientation/consciousness: patient oriented x3 Neck Neck: Yes normal visual inspection Resp Effort & Inspection: normal respiratory effort Auscultation: clear to auscultation bilaterally, no crackles, no rales, no rhonchi and no wheezes Cardio Jugular venous distension: no JVD Rate: regular rate Rhythm: regular rhythm Heart sounds: S1 normal heart sound present, S2 normal heart sound present, no murmurs and no rubs GI Inspection: Yes normal to inspection Neuro General: patient oriented x3 Extrem General: Yes normal to inspection Psych Appearance: grossly normal Mental Status: mental status grossly normal Speech and movement: Normal speech and movement present Assessment & Plan Assessment & Plan (1) Heart failure with reduced ejection fraction: Code(s): I50.20 - Unspecified systolic (congestive) heart failure Plan: Heart failure with reduced ejection fraction secondary to peripartum cardiomyopathy with improved LV ejection fraction to 35-40%. We discussed management of heart failure with reduced ejection fraction cardiomyopathy. Avoidance of in future was discussed. Continue current neurohormonal modulation with carvedilol, Entresto as well as spironolactone. Cannot further maximize due to low blood pressure. No signs or symptoms of heart failure and NYHA class 1 at this point time. No need for diuretic regimen. Advised to continue phase 2 cardiac rehabilitation. No indication for ICD therapy at this point time. Will follow-up with limited echocardiogram 6 months time. Follow up in the clinic in 6 months time, sooner p.r.n.. Thank you for allowing me to partake in the care Orders: Orders CA echo limited 6 Months I42.9 - Cardiomyopathy, unspecified, I50.20 - Unspecified systolic (congestive) heart failure Coding Level of Care Code Est Pt Level 4 (20731) Diagnoses Heart failure with reduced ejection fraction I50.20
[2023-06-01 14:21] VITALS: BP 110/70; PULSE 62; BMI 29.7
== END 2023-06-01 14:38 | disposition home or self-care (01) ==
PROVIDERS: PCP Obstetrics & Gynecology; Visit Provider Internal Medicine Cardiovascular Disease
DX: I50.20 Unspecified systolic (congestive) heart failure (principal)
CPT/HCPCS: 99214

== ENCOUNTER → 2023-06-01 14:18 | Outpatient (BNVA) | payer OTHER, SELFPAY ==
[2023-03-04 13:55] VITALS: BP 132/62; BP 88/68; BMI 28.7
== END ==
PROVIDERS: PCP Obstetrics & Gynecology; Visit Provider Internal Medicine Cardiovascular Disease
DX: I50.20 Unspecified systolic (congestive) heart failure (principal)
CPT/HCPCS: 99212

== ENCOUNTER 2023-07-06 11:30 | Outpatient (RCR) | payer OTHER, SELFPAY ==
[2023-03-04 13:55] VITALS: BP 132/62; BP 88/68; BMI 28.7
--- NOTE | 2023-03-05 14:58 | MHC.CR.ITI ---
Addendum entered and electronically signed by Yane Goodman RN 03/06/23 07:39: 03/06/23-ADD:EF 30-35% per MD visit 03/05/23. Original Note: [address] [phone] F: [phone] Please see additional notes from [facility] Initial Assessment/ITP Cardiac Rehab Initial Assessment/ITP Start: 03/04/23 13:54 Freq: Status: Active Protocol: Activity Type Activity Date Activity User E-sign Co-sign Detail Recorded Client Recorded Date Recorded By Document 03/04/23 13:55 JERMAINEForestMELCHOR [id number] 03/04/23 14:19 MONICO 03/04/23 13:55 Cardiac Rehab ITP Initial [Excercise] -Tax Manager Cpa Required No -Preferred Language [place] Islander -Number of sessions approved 36 -Diagnosis CHF EF < or = 35% I50.9 -Other Diagnosis Acute Cardiogenic Pulmonary Edema , Asthma -Comments Peripartum Cardiomyopathy, 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 Some SOB per follow up visit with MD. She states she has difficulty determining if it is her heart or Asthma . She has not recently needed Albuterol. [Functional Assessment] -6 Min Walk (distance in ft) 1,200 -METS Achieved 2.74 -Resting HR 74 -Resting BP 88/68 -Resting SpO2 97 -Exercise HR 101 -Exercise BP 132/62 -Exercise SpO2 99 -RPE 9 -Dyspnea No -ECG Summary SR-ST -Comments Stopped with 12 seconds left due to Hiccups. Nursery Technician supervisor leaf spring fabrication nurse was left message with patient's BP's. Made aware not Orthostatic or symptomatic. BP increased with exercise. [Pre Rehab] -Pre Rehab Home Exercise Yes -Mode Walk -Exercise Minutes/Day 60 -Exercise Days/Week Daily -Intensity Moderate -Comments Walks with . Expresses she can walk an hour before she gets tired. MD instructed her not to return to the gym yet. -Risk Stratification: Intermediate Functional Risk Participants capacity < 5-6 METs -Fall Risk No -Assistive Devices None -Comments MD notes indicate reduced/ severely reduced EF. Exact EF not available at this time but will review medical records further. <30% would put patient in high risk category. [Exercise Plan] [Intervention] -Exercise Prescription NuStep, Recumbent Bike, Recumbent Elliptical, Treadmill,UBE, Upright Bike, Weights -Duration Intensity 36 Sessions -Frequency 2-3x/week -Angina with Exercise No [Exercise Education] -Exercise Education Exercise orientation, Exercise safety ,Home exercise, RPE,Signs and symptoms,Warmup /cooldown -Date Completed 03/05/23 -Initials CD -Education Summary 03/05/23-Above reviewed and states understanding. [Exercise Goals] -Exercise Most Days of the Week Yes -Exercise 30-45 mins/day Yes -Target HR Range +20 - +30 beats above resting -Target RPE range 11-13 -Increase METS next 30 days 0.5-1.0 METS Every two weeks -METs goal by Discharge 5 METS -Comments LTG 5 METS [Nutrition] [Hyperlipidemia] -Hyperlipidemia No -Are lab results available No [Diabetes] -Diabetes No -Monitors Glucose No [Weight Management] -Height 5 ft -Weight 66.7 kg -BMI 28.7 -Recommended Diet Low salt, low fat -Comments Patient is 2 months post . She and stated label reading they follow for low salt options [Drug/Alchohol Use] -Drug/Alcohol Use No [Nutritional Screen (Rate Your Plate)] -Score 57 -Interpretation of Score Some ways diet can be healthier -Comments Darcie is concentrating on low salt diet. But is following low fat, low salt diet [Nutrition Plan] [Intervention] -Referral(s) Nutrition Brochures [Nutrition Education] -Nutrition Education Hydration, Nutrition, Reading food labels -Date Completed 03/05/23 -Initials CD -Education Summary Darcie and state appropriate label reading for low salt options. States she is not on a fluid restriction. [Nutrition Goals] -Goals BMI < 25, Fasting BG 80- 120 mg/dL,HDL > 40,LDL < 70, Total CHOL < 200 -Weight goal 130 -Comments Two months Post . Weight of 130 would bring BMI to 25 .4 [Psycho/Social] -Stage of Change Action -Learning Barriers None -Occupation Currently working -PHQ9 Score 0 -Interpretation of Score No depression/ anxiety -Plan of Action/Follow-up On Maternity leave. FMLA until 05/01. -Comments Darcie expresses she does not feel depressed or anxious. Expresses she has been told she cannot have more children, and unsure if Cardiomyopathy will resolve. -Patient Self-Reports Depression No -Family Support Lives with spouse/others -Comments Lives with significant other and daughter who is 2 months old. Families are supportive. [Psycho/Social Plan] [Intervention] -Referral(s) No consult needed [Psycho/Social Education] -Psycho/Social Education Coping techniques, Positive support system, Relaxation Techniques, Reviewed PHQ9 Score w/pt, Stress management -Date Completed 03/05/23 -Initials CD -Education Summary Likes to watch movies, reads book, games on phone. Walks with significant other. Parents/ Grandparents are supportive. [Psycho/Social Goals] -Goals Not Applicable [Other Core Comp] [Risk Factors] -Comments: Peripartum Cardiomyopathy [Hypertension] -Hypertention No -Resting BP: 88/68 [Tobacco Use] -Patient Tobacco Use Status Never used Tobacco [Heart Failure] -Heart Failure Yes -NYHF Class 1-2 -Dyspnea at Rest No -Dyspnea with Exercise Yes -Last Hospitalization Two [Other Core Comp Plan] [Intervention] -Referral(s) Self Monitoring BP [Other Core Comp Education] -Other Core Comp Education Medication compliance,RPD Scale/SOB management -Date Completed 03/05/23 -Initials CD -Education Summary Has BP cuff at home. Last MD Appt. weight had increased from 138-145. Does daily weights, follows low salt diet. No SOB noted today . Lungs clear, no peripheral edema. [Other Core Comp Goals] -Goals Improve dyspnea ,Manage risk factors,Manage signs and symptoms of CHF ,Medication compliance, Resting BP < 130/80 -Comments Does daily weights, and follows low salt diet. States s/s to report [Medication Plan] [Intervention] -Medications Coreg 6.25MG BID Lasix 20MG Daily-now every three days Spironolactone 12.5MG BID(cuts 25mg in half) Entresto 24MG Daily Ferrous Fumarate-FA 28MG iron 800 MCG Albuterol - 90mcg 2puffs PRN -Compliance Patient reports compliance w/ prescribed meds [Medication Education] -Education Importance of medication compliance, Medication purpose, Medication schedule, Medication side effects -Date Completed 03/05/23 -Initials CD -Education Summary States medications, doses, purpose and side effects of medications. [Medication Goals] -Goals Adherence to medication compliance -Comments MD note indicates patient takes medication religiously . Darcie states she takes medications always as prescribed . [Treatment Times] -Rehab Services with ECG Monitor -Time 1300 -End Time 1430 -Visit Duration 90
[2023-07-30 09:09] VITALS: BP 132/62; BP 88/68; BMI 28.7
--- NOTE | 2023-07-30 10:09 | MHC.CR.ITD ---
[address] [phone] F: [phone] Please see additional notes from [address] [phone] F: [phone] Please see additional notes from [facility] Cardiac Rehab Discharge/ITP Cardiac Rehab Discharge/ITP Start: 03/04/23 13:54 Freq: Status: Active Protocol: Activity Type Activity Date Activity User E-sign Co-sign Detail Recorded Client Recorded Date Recorded By Document 07/30/23 09:09 MONICO [id number] 07/30/23 09:56 MONICO 07/30/23 09:09 Cardiac Rehab Discharge/ITP [Exercise] -Supervisor Metal Placing Required No -Preferred Language Irish -Total Sessions Attended 35 -Comments Peripartum Cardiomyopathy, 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 Some SOB per follow up visit with MD. She states she has difficulty determining if it is her heart or Asthma . She has not recently needed Albuterol. Discharge: Darcie completed 35 visits. She was consistent with her attendance. No recent signs of CHF. She took her Albuterol x1 prior to exercise. Darcie has an upcoming ECHO. Tel. SR- ST without ectopy. Max Mets 4.3. 6MW increased from 1200 to 1825 feet. [Functional Assessment] -6 Min Walk (distance in ft) 1,200 -METS Achieved 2.74 -Resting HR 74 -Resting BP 88/68 -Resting SpO2 97 -Exercise HR 101 -Exercise BP 132/62 -RPE 9 -ECG Summary Discharge 6MW- 1825 feet, BP 104/68 resting and 118/68 with exercise. O2 Sat 99% both at rest and with exercise. RPE- 11. -Fall Risk No [Exercise Plan] [Intervention] -Exercise Prescription NuStep, Recumbent Bike, Recumbent Elliptical, Treadmill,UBE, Upright Bike, Weights -Duration Intensity 36 Sessions -Exercise Minutes/Day 50 -Exercise Days/Week 2 -Angina with Exercise No -Peak METs 4.3 [Home Exercise] -Mode Walk/home gym -Frequency few times a week -Intensity Light -Comments Walks 10-15 min . a few times a day [Exercise Education] -Exercise Education Exercise orientation, Exercise safety ,Home exercise, RPE,Signs and symptoms,Warmup /cooldown -Date Completed 03/05/23 -Initials CD -Education Summary 03/05/23-Above reviewed and states understanding. Discharge: Reports RPE, and participated in class warm ups . S/S to report , home exercise reviewed. She follows closely with MD . No questions at last session . Partner is also knowledgeable. [Exercise Goals] -Exercise Most Days of the Week Yes -Exercise 30-45 mins/day Yes -Target HR Range +20 - +30 beats above resting -Target RPE range 11-13 -Increase METS next 30 days 0.5-1.0 METS Every two weeks -METs goal by Discharge 5 METS -Comments LTG 5 METS Discharge- Attained 4.3 METS [Nutrition] [Hyperlipidemia] -Are lab results available No -Hyperlipidemia No [Diabetes] -Diabetes No [Weight Management] -Weight 66.7 kg -BMI 28.7 -Comments Patient is 2 months post . She and stated label reading they follow for low salt options Discharge- Weight 69 KG. Reports daily weights have been stable. No peripheral edema, SOB. She has followed MD instructions on diuretic use, med adjustments. [Drug/Alchohol Use] -Drug/Alcohol Use No [Nutrition Plan] [Intervention] -Attended Nutrition Brochures [Nutrition Education] -Nutrition Education Hydration, Nutrition, Reading food labels -Date Completed 03/05/23 -Initials CD -Education Summary Darcie and state appropriate label reading for low salt options. States she is not on a fluid restriction. Discharge: Darcie and partner are knowledgeable on Nutrition/ label reading, and hydration. She usually brought a water bottle to classes. [Nutrition Goals] -Goals BMI < 25, Fasting BG 80- 120 mg/dL,HDL > 40,LDL < 70, Total CHOL < 200 -Weight goal 130 -Comments Two months Post . Weight of 130 would bring BMI to 25 .4 [Psycho/Social] -Stage of Change Action -Occupation Currently working -PHQ9 Score 0 -Interpretation of Score No depression/ anxiety -Plan of Action/Follow-up On Maternity leave. FMLA until 05/01. Discharge-Has returned to work -Patient Self-Reports Depression No -Comments Darcie expresses she does not feel depressed or anxious. Expresses she has been told she cannot have more children, and unsure if Cardiomyopathy will resolve. Discharge- Darcie expressed that she is has an upcoming ECHO and hopes for improvement. -Medication Changes No [Psycho/Social Plan] [Intervention] -Attended No consult needed [Psycho/Social Education] -Psycho/Social Education Coping techniques, Positive support system, Relaxation Techniques, Reviewed PHQ9 Score w/pt, Stress management -Date Completed 03/05/23 -Initials CD -Education Summary Likes to watch movies, reads book, games on phone. Walks with significant other. Parents/ Grandparents are supportive. Discharge-No change from above. Baby is intermittently up at night due to teething. Partner/family are supportive. [Psycho/Social Goals] -Goals Not Applicable [Other Core Comp] [Hypertension] -Hypertention No -Resting BP: 88/68 -Comments Discharge- Resting BP 104/ 68 pre exercise and 98/58 post exercise. No complaints. [Tobacco Use] -Change in Use No [Heart Failure] -Dyspnea at Rest No -Dyspnea with Exercise Yes -Comments Discharge: No SOB noted. She was able to carry on a conversation with exercise at discharge. [Other Core Comp Plan] [Intervention] -Attended Self Monitoring BP [Other Core Comp Education] -Other Core Comp Education Medication compliance,RPD Scale/SOB management -Date Completed 03/05/23 -Initials CD -Education Summary Has BP cuff at home. Last MD Appt. weight had increased from 138-145. Does daily weights, follows low salt diet. No SOB noted today . Lungs clear, no peripheral edema. Discharge: Darcie was aware of s/s to report and worked closely with MD. Meds were adjusted while she was in the program. Entresto was started and Coreg dose adjusted. She took Lasix as prescribed by MD. [Other Core Comp Goals] -Goals Improve dyspnea ,Manage risk factors,Manage signs and symptoms of CHF ,Medication compliance, Resting BP < 130/80 -Comments Does daily weights, and follows low salt diet. States s/s to report. Discharge- Darcie's VS were stable. MD was updated on BP's when she entered the program. No S/S of CHF. She states understanding of events and plan for ECHO. She contacts MD as needed. She takes medications as ordered and calls MD for any questions/ concerns. [Medication Plan] [Intervention] -Medications Coreg 3.125MG BID Lasix 20MG Daily-now every three days Spironolactone 12.5MG BID(cuts 25mg in half) Entresto 24- 26MG Daily Ferrous Fumarate-FA 28MG iron 800 MCG Albuterol - 90mcg 2puffs PRN -Compliance Patient reports compliance w/ prescribed meds [Medication Education] -Education Importance of medication compliance, Medication purpose, Medication schedule, Medication side effects -Date Completed 03/05/23 -Initials CD -Education Summary States medications, doses, purpose and side effects of medications. Discharge- Knowledgeable [Medication Goals] -Goals Adherence to medication compliance -Comments MD note indicates patient takes medication religiously . Darcie states she takes medications always as prescribed . Discharge-No change; no issues with medication
== END 2023-07-30 16:34 | disposition home or self-care (01) ==
LOC: HO.CR 11:30
PROVIDERS: Visit Provider Internal Medicine Cardiovascular Disease
DX: I50.20 Unspecified systolic (congestive) heart failure (principal)
CPT/HCPCS: 93798

== ENCOUNTER → 2023-11-30 14:04 | Outpatient (REF) | payer OTHER, SELFPAY ==
--- NOTE | 2023-11-30 14:07 | CA_ITS ---
Transthoracic Echocardiogram Patient (Last, First, Middle): Darcie Rowan, Gender: Female Date of : 1990 Age: 33 Procedure Date: 11/30/2023 Procedure Type: Transthoracic Echocardiogram Location: OP Height: 152.4 cm Weight: 69.85 kg BSA: 1.67 m2 Heart Rate: 62 bpm BP: 130 / 74 mmHg Project Engineering Director: ELOISE Referring MD: Manuel Hernandez MD Oil [employer] Gas Field Technician: Manuel Hernandez MD Symptoms: I42.9 - Cardiomyopathy, unspecified Study Quality: Adequate ECG Rhythm: Sinus Conclusions: - Mildly reduced LV ejection fraction 45-50% Findings Left Ventricle Mildly increased left ventricular cavity size. There is normal left ventricular wall thickness. The left ventricular systolic function is mildly decreased. The visually estimated ejection fraction is between 45-50%. Spectral Doppler is indicative of a normal filling pattern. Peak GLS is 15.8%, mildly reduced. Prior Study Comparison Changes noted compared to prior study dated: 04/21/2023. LV systolic function has improved Measurements 2D Linear Measurements IVSd: 0.55 0.6-0.9/0.6-1.0 cm LVIDd: 5.44 3.9-5.3/4.2-5.9 cm LVIDd Index: 3.26 2.4-3.2/2.2-3.1 cm/m2 LVIDs: 4.15 2.0-3.6 cm LVPWd: 0.61 0.7-1.1 cm LV Mass: 131.43 67-162/88-224 g LV Mass Index: 78.70 43-95/49-115 g/m2 LVOT Diam: 2.10 3.0+(-)1.3 cm 2D Systolic Function EF 4C: 47.30 >55% EF 2C: 47.00 >55% EF BiP: 47.10 >55% Mitral Valve MV Pk E: 0.89 MV PK A: 0.66 MV Decel Time: 257.00 E/A: 1.30 E'Lateral: 9.68 E'Medial: 8.49 E/E' Med: 10.50 E/E' Lat: 9.20 PHT: 75.00 MVA PHT: 2.93 Decel [place]: 3.47 LVOT LVOT Pk Juve: 1.00 LVOT Mn Juve: 0.71 LVOT VTI: 0.22 LVOT Pk Grad: 4.00 LVOT Mn Grad: 2.00 LVOT Diam: 2.10 LVOT Area: 3.46 Diastolic Function MV Pk E: 0.89 MV Pk A: 0.66 E/A: 1.30 E'Medial: 8.49 E/E' Med: 10.50 E' Laterial: 9.68 E/E' Lat: 9.20 Updated in Other Vendor System with Status of Final Manuel Hernandez MD electronically signed on 12/01/2023 11:59:24 AM with status of Final
== END ==
LOC: HO.CARD 14:04
PROVIDERS: PCP Obstetrics & Gynecology; Visit Provider Internal Medicine Cardiovascular Disease
DX: I42.9 Cardiomyopathy, unspecified (principal); I50.20 Unspecified systolic (congestive) heart failure
CPT/HCPCS: 93308; 93356

== ENCOUNTER → 2023-11-30 14:07 | Outpatient (BNV) | payer OTHER, SELFPAY | PROVIDERS: PCP Obstetrics & Gynecology; Visit Provider Internal Medicine Cardiovascular Disease | DX: I42.9 Cardiomyopathy, unspecified (principal) | CPT/HCPCS: 93308; 93321; 93356 ==

== ENCOUNTER 2023-12-07 14:14 | Outpatient (AMB) | payer OTHER, SELFPAY ==
[2023-03-04 13:55] VITALS: BP 132/62; BP 88/68; BMI 28.7
--- NOTE | 2023-12-07 14:21 | A.OFFVIS_ITS ---
Vital Signs 12/07/23 14:23 Height 5 ft Weight 141 lb 1.533 oz BMI 27.6 BP 110/66 Blood Pressure Location Lt brachial Position Sitting Pulse 81 Intake Visit Reasons: 6M echo Intake Note: 6 month follow-up echo Electrician Wiring Required: No Transit Vehicle Inspector: Transit Vehicle Inspector Present Accompanied by: Mother Allergies No Known Allergies Allergy (Verified 04/03/23 10:32) Medication List - Last Reconciled 12/07/23 by Manuel Hernandez MD albuterol sulfate 90 mcg/actuation 2 puffs inhalation Q6H PRN carvedilol 3.125 mg PO BID sacubitril-valsartan 24-26 mg (Entresto) 1 tab PO BID spironolactone 12.5 mg See Protocol PO BID@0900,1800 30 days HPI Comments Details: Darcie comes for follow-up. He has been doing very well. She has been taking all her medications. Her most recent echocardiogram shows improvement in LV ejection fraction to mildly reduced range. Denies any heart failure symptoms. No orthopnea, PND, leg edema. No exertional chest pain. Tolerating all her medications. Blood pressures remained stable. She is remaining active and trying to exercise as much as possible although she has busy personal life given her job as well as taking care of her 1-year-old child. [facility] Medical History Peripartum cardiomyopathy Asthma Acute cardiogenic pulmonary edema Surgical History No pertinent past surgical history Social History Household Members: Significant Other Household Members Other:: daughter Housing: House Do you presently have visiting nurse or other home services: No Alcohol intake: never Patient Tobacco Use Status: Never used Tobacco service: No Review of Systems Const Denies chills, Denies fatigue, Denies fever(s), Denies frequent falls, Denies weakness, Denies weight gain and Denies weight loss ENT Denies dizziness Card Denies chest pain, Denies leg edema, Denies lightheadedness, Denies palpitations, Denies dyspnea, Denies dyspnea on exertion, Denies orthopnea and Denies other (loss of consciousness) Resp Denies cough, Denies dyspnea and Denies dyspnea on exertion GI Denies hematochezia and Denies change in stool character Musc Denies abnormal gait, Denies muscle weakness, Denies numbness, Denies radiating pain into limb and Denies tingling Neuro Denies abnormal gait, Denies dizziness, Denies frequent falls, Denies numbness, Denies tingling and Denies weakness Endo Denies fatigue and Denies palpitations Physical Exam Vital Signs: Last Vital Signs Pulse 81 12/07/23 14:23 BP 110/66 12/07/23 14:23 BMI result Body Mass Index 27.6 Const General: cooperative, healthy appearing, comfortable and no acute distress Orientation/consciousness: patient oriented x3 Neck Neck: Yes normal visual inspection Resp Effort & Inspection: normal respiratory effort Auscultation: clear to auscultation bilaterally, no crackles, no rales, no rhonchi and no wheezes Cardio Jugular venous distension: no JVD Rate: regular rate Rhythm: regular rhythm Heart sounds: S1 normal heart sound present, S2 normal heart sound present, no murmurs and no rubs GI Inspection: Yes normal to inspection Neuro General: patient oriented x3 Extrem General: Yes normal to inspection Psych Appearance: grossly normal Mental Status: mental status grossly normal Speech and movement: Normal speech and movement present Assessment & Plan Assessment & Plan (1) Peripartum cardiomyopathy: Comment: [email or web address] Code(s): O90.3 - Peripartum cardiomyopathy Category: Medical Plan: Peripartum cardiomyopathy with much improved LV ejection fraction now to mildly depressed range compared to in the past. She has no signs or symptoms of heart failure. NYHA class 1. Encouraged to continue to participate in regular physical activity. Continue current neurohormonal modulation with carvedilol, Entresto as well as spironolactone. Can not maximize due to lower blood pressure. Signs and symptoms of heart failure were discussed she understands them well. Continue current therapy importance of this was discussed. We discussed about avoidance of in future. She understands and agrees. Follow up in the clinic in 6 months time, sooner p.r.n.. Thank you for allowing me to partake in her care Coding Level of Care Code Est Pt Level 4 (84007) Diagnoses Peripartum cardiomyopathy O90.3
[2023-12-07 14:23] VITALS: BP 110/66; PULSE 81; BMI 27.6
== END 2023-12-07 14:48 | disposition home or self-care (01) ==
PROVIDERS: PCP Obstetrics & Gynecology; Visit Provider Internal Medicine Cardiovascular Disease
DX: O90.3 Peripartum cardiomyopathy (principal)
CPT/HCPCS: 99214

== ENCOUNTER → 2023-12-07 14:14 | Outpatient (BNVA) | payer OTHER, SELFPAY | PROVIDERS: PCP Obstetrics & Gynecology; Visit Provider Internal Medicine Cardiovascular Disease | DX: O90.3 Peripartum cardiomyopathy (principal) | CPT/HCPCS: 99212 ==

== ENCOUNTER 2024-06-16 14:58 | Outpatient (AMB) | payer OTHER, SELFPAY ==
[2024-06-16 14:59] VITALS: BP 100/62; PULSE 65; BMI 27.9
--- NOTE | 2024-06-16 14:59 | MHC.OFFVIS ---
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 Today she reports she has been doing well since her last visit in November. She does report having some fatigue. No chest discomfort at rest or with activity. No shortness of breath, PND, orthopnea or edema. No lightheadedness, presyncope, syncope, falls. Compliant with all meds. No recurrent . Has her [id number] child with her. [facility] Medical History Peripartum cardiomyopathy Asthma Acute cardiogenic pulmonary edema Surgical History No pertinent past surgical history Social History Household Members: Significant Other Household Members Other:: daughter Housing: House Do you presently have visiting nurse or other home services: No Alcohol intake: never Patient Tobacco Use Status: Never used Tobacco service: No Review of Systems Const All systems reviewed & are unremarkable except as noted in HPI and below Reports fatigue ENT Denies dizziness Card Denies chest pain, Denies chest pain at rest, Denies chest pain with activity, Denies rapid heart rate, Denies pedal edema, Denies edema, Denies leg edema, Denies lightheadedness, Denies palpitations, Denies dyspnea, Denies dyspnea on exertion and Denies orthopnea Resp Denies cough, Denies dyspnea and Denies dyspnea on exertion GI Denies hematochezia and Denies change in stool character Musc Denies abnormal gait, Denies limited range of motion, Denies muscle cramps, Denies muscle weakness, Denies numbness, Denies radiating pain into limb, Denies stiffness and Denies tingling Neuro Denies abnormal gait, Denies dizziness, Denies numbness and Denies tingling Endo Reports fatigue and Denies palpitations Physical Exam Vital Signs: Last Vital Signs Pulse 65 06/16/24 14:59 BP 100/62 06/16/24 14:59 BMI result Body Mass Index 27.9 Const General: cooperative, healthy appearing, comfortable and no acute distress Orientation/consciousness: patient oriented x3 Neck Neck: Yes normal visual inspection Resp Effort & Inspection: normal respiratory effort Auscultation: clear to auscultation bilaterally, no rales, no rhonchi and no wheezes Cardio Jugular venous distension: no JVD Rate: regular rate Rhythm: regular rhythm Heart sounds: S1 normal heart sound present, S2 normal heart sound present, no murmurs and no rubs Neuro General: patient oriented x3 Extrem General: Yes normal to inspection, No no pedal edema and No calf tenderness Psych Appearance: grossly normal Mental Status: mental status grossly normal Speech and movement: Normal speech and movement present Assessment & Plan Assessment & Plan (1) Peripartum cardiomyopathy: Comment: [email or web address] Code(s): O90.3 - Peripartum cardiomyopathy Category: Medical Plan: History peripartum/ cardiomyopathy. Echocardiogram done 01/23/2023 with EF 30-35%. Was put on appropriate neurohormonal modulation using carvedilol, Entresto and Aldactone. Her EF has improved. Last echocardiogram done 11/30/2023 showed EF 45-50%. On exam today she does not appear fluid overloaded. She does report some fatigue but otherwise feels well. Will have her update labs including CMP, CBC, BNP, TSH. Plan to call her with results. Unable to further titrate medications due to low, asymptomatic blood pressure at 100/62, heart rate 65. Continue carvedilol, Entresto, Aldactone at current doses. She has repeat echocardiogram due 1 year from last. Recommend no further pregnancies. This was discussed with her again at this visit. Cardiology follow-up with Dr. Hernandez 5-6 months, sooner if needed. (2) Heart failure with reduced ejection fraction: Code(s): I50.20 - Unspecified systolic (congestive) heart failure Category: Medical Plan: Prior heart failure with reduced EF. Last echo shows EF improved to near normal. She is not fluid overloaded on exam. She is not requiring diuretics other than Aldactone. (3) Fatigue: Code(s): R53.83 - Other fatigue Category: Medical Plan: Checking TSH and labs as above Plan Time spent on chart review, documentation, interview and assessment Orders: Orders Complete Blood Count Auto Diff Today I50.20 - Unspecified systolic (congestive) heart failure B Type Natriuretic Peptide Today I50.20 - Unspecified systolic (congestive) heart failure Comprehensive Met. Panel Today O90.3 - Peripartum cardiomyopathy TSH reflex Free T4 Today R53.83 - Other fatigue Coding Level of Care Code Est Pt Level 4 (69520) Complex EM visit Add On G2211 Diagnoses Peripartum cardiomyopathy O90.3 Heart failure with reduced ejection fraction I50.20 Fatigue R53.83 Time Spent (min) 30
== END 2024-06-16 15:23 | disposition home or self-care (01) ==
PROVIDERS: PCP Obstetrics & Gynecology; Visit Provider Nurse Practitioner Family
DX: O90.3 Peripartum cardiomyopathy (principal); I50.20 Unspecified systolic (congestive) heart failure; R53.83 Other fatigue
CPT/HCPCS: 99214; G2211

== ENCOUNTER → 2024-06-16 14:58 | Outpatient (BNVA) | payer SELFPAY | PROVIDERS: PCP Obstetrics & Gynecology; Visit Provider Nurse Practitioner Family | DX: O90.3 Peripartum cardiomyopathy (principal); I50.20 Unspecified systolic (congestive) heart failure; R53.83 Other fatigue | CPT/HCPCS: 99212 ==

== ENCOUNTER 2024-06-20 11:14 | Outpatient (REF) | payer OTHER, SELFPAY ==
[2024-06-20 11:32] LABS: MANUAL DIFF FLAG NO
[2024-06-20 12:08] LABS: Basophils Percent Auto 0.4 % (0-2); Eosinophils Absolute Auto 0.3 X10*3/uL (0.0-0.4); Eosinophils Percent Auto 3.8 % (0-4); Hemoglobin 13.4 g/dl (12.0-16.0); Imm Gran Abs Auto 0.03 X10*3/uL (0.00-0.03); Imm Gran Pct Auto 0.4 % (0.0-0.4); Lymphocytes Absolute Auto 1.8 X10*3/uL (1.2-4.9); Lymphocytes Percent Auto 21.3 % (20-40); Mean Corpuscular HGB Conc 33.5 g/dl (31.0-35.0); Mean Corpuscular Hemoglobin 30.3 pg (27.0-33.0); Mean Corpuscular Volume 90.5 fL (80.0-98.0); Mean Platelet Volume 11.2 fL (9.4-12.3); Monocytes Absolute Auto 0.5 X10*3/uL (0.1-1.2); Monocytes Percent Auto 5.9 % (2-11); Neutrophils Absolute Auto 5.7 x10*3/uL (2.0-8.3); Neutrophils Percent Auto 68.2 % (45-73); Platelet Count 291 X10*3/uL (160-400); Red Blood Count 4.42 X10*6/uL (4.20-5.50); Red Cell Distribution Width 12.1 % (11.0-16.0); White Blood Count 8.4 X10*3/uL (4.8-10.8)
[2024-06-20 12:39] LABS: B Type Natriuretic Peptide < 10 pg/mL (<100)
[2024-06-20 12:41] LABS: Alanine Aminotransferase 20 U/L (0-31); Albumin Level 4.5 g/dL (3.5-5.0); Alkaline Phosphatase 59 U/L (39-117); Anion Gap 12 (12-20); Aspartate Amino Transferase 21 U/L (5-31); Bilirubin Total 0.3 mg/dL (0.0-1.0); Blood Urea Nitrogen 12 mg/dL (9-16); Calcium 9.4 mg/dL (8.4-10.2); Carbon Dioxide 25 mmol/L (22-29); Chloride 106 mmol/L (96-108); Estimated Glomerular Filt Rate > 60; Glucose Random 97 mg/dL (60-115); Potassium 4.1 mmol/L (3.3-5.1); Sodium 139 mmol/L (135-145); Total Protein 8.5 g/dL (6.5-8.0)
[2024-06-20 13:00] LABS: TSH reflex Free T4 1.41 uIU/mL (0.32-4.0)
== END 2024-06-20 11:15 | disposition home or self-care (01) ==
LOC: HO.LAB 11:14
PROVIDERS: Visit Provider Nurse Practitioner Family
DX: I50.20 Unspecified systolic (congestive) heart failure (principal); O90.3 Peripartum cardiomyopathy; R53.83 Other fatigue
CPT/HCPCS: 36415; 80053; 83880; 84443; 85025

== ENCOUNTER → 2024-11-23 08:09 | Outpatient (REF) | payer OTHER, SELFPAY ==
--- NOTE | 2024-11-23 08:12 | CA_ITS ---
Transthoracic Echocardiogram Patient (Last, First, Middle): Darcie Rowan, Gender: Female Date of : 1990 Age: 34 Procedure Date: 11/23/2024 Procedure Type: Transthoracic Echocardiogram Location: OP Height: 152.4 cm Weight: 64.41 kg BSA: 1.61 m2 Heart Rate: 65 bpm BP: 110 / 62 mmHg Biology Specimen Technician: SB/RC Referring MD: Manuel Hernandez MD Range Feeder: Manuel Hernandez MD Symptoms: O90.3 - Peripartum cardiomyopathy Study Quality: Adequate ECG Rhythm: Sinus Conclusions: - 1. Low normal LV ejection fraction 50-55% 2. Trivial aortic regurgitation 3. Normal RV systolic pressure 4. No pericardial effusion Findings Left Ventricle Normal left ventricular cavity size. There is normal left ventricular wall thickness. The left ventricular systolic function is low normal. The visually estimated ejection fraction is between 50-55%. Spectral Doppler is indicative of a normal filling pattern. Right Ventricle Normal right ventricular cavity size and systolic function. Atria Both atria are normal in size. Interatrial shunt cannot be excluded. Aortic Valve Normal aortic valve structure and function. There is no aortic valve stenosis. There is trace (trivial) aortic valve regurgitation. Mitral Valve Normal mitral valve structure and function. There is trace mitral valve regurgitation. There is no mitral valve stenosis. Pulmonic Valve The pulmonic valve was not well visualized. Tricuspid Valve Normal tricuspid valve structure. There is trace tricuspid valve regurgitation. The right ventricular systolic pressure is normal. The right ventricular systolic pressure is 18 mmHg. Normal right atrial pressure. There is no evidence of pulmonary hypertension. Great Vessels All visible segments of the aorta are normal in size. The pulmonary artery was not well visualized. Venous The inferior vena cava is normal in size and collapses greater than 50% with inspiration. Pericardium/Pleural There is no evidence of pericardial effusion. Prior Study Comparison Changes noted compared to prior study dated: 11/30/2023. LV ejection fraction is marginally improved Measurements 2D Linear Measurements IVSd: 0.53 0.6-0.9/0.6-1.0 cm LVIDd: 4.97 3.9-5.3/4.2-5.9 cm LVIDd Index: 3.09 2.4-3.2/2.2-3.1 cm/m2 LVIDs: 3.50 2.0-3.6 cm LVPWd: 0.81 0.7-1.1 cm LA Diam: 2.70 2.7-3.8/3.0-4.0 cm LAIDs Index: 1.68 1.5-2.3 cm/m2 LV Mass: 134.11 67-162/88-224 g LV Mass Index: 83.30 43-95/49-115 g/m2 LVOT Diam: 1.90 3.0+(-)1.3 cm 2D Systolic Function EF 4C: 51.80 >55% EF 2C: 49.00 >55% EF BiP: 51.70 >55% Mitral Valve MV Pk E: 0.79 MV PK A: 0.56 MV Decel Time: 224.00 E/A: 1.40 E'Lateral: 8.59 E'Medial: 6.96 E/E' Med: 11.30 E/E' Lat: 9.20 PHT: 66.00 MVA PHT: 3.33 Decel [place]: 3.52 Aortic Valve AoV Pk Juve: 1.20 AoV Pk Grad: 6.00 DEJUAN: 2.23 LVOT LVOT Pk Juve: 0.93 LVOT Mn Juve: 0.69 LVOT VTI: 0.19 LVOT Pk Grad: 3.00 LVOT Mn Grad: 2.00 LVOT Diam: 1.90 LVOT Area: 2.84 Diastolic Function MV Pk E: 0.79 MV Pk A: 0.56 E/A: 1.40 E'Medial: 6.96 E/E' Med: 11.30 E' Laterial: 8.59 E/E' Lat: 9.20 Right Ventricle TAPSE (mm): 23.00 TVS' Juve: 14.00 Tricuspid Valve TR Pk Juve: 1.91 TR Pk Grad: 15.00 RA Press: 3.00 RVSP: 18.00 Great Vessels Aorta Sinus of Valsalva: 2.80 2.0-3.5 cm Ao Asc: 2.50 2.1-3.4 cm Ao Arch: 2.50 Ao Desc: 1.50 Pulmonary Valve PV Pk Juve: 0.79 Peak PV Grad: 2.00 Updated in Other Vendor System with Status of Final Manuel Hernandez MD electronically signed on 11/24/2024 11:00:28 AM with status of Final
--- OUTSIDE RECORDS SUMMARY | 2024-11-23 08:14 | XMS_ITS | Clinical Summary ---
Author Organization LL [address] [facility] Address [address] [place] [address] Phone Care Team Providers Care Custom Shoemaker Name Role Phone Unavailable Primary Care Provider Unavailabl e Social History Tobacco Use Types Packs/Day Years Used Date Smoking Tobacco: Never Assessed Comments Unknown Sex and Gender Information Value Date Recorded Sex Assigned at Not on file Legal Sex Female 1:31 AM EST Gender Identity Not on file Sexual Orientation Not on file Plan of Treatment Health Maintenance Due Date Last Done Comments DTaP,Tdap,and Td Vaccines (1 - Tdap) 2011 Hepatitis B Vaccines (1 of 3 - 19+ 3-dose series) 2011 Cervical Cancer Screening: P ap Smear 2013 Depression Screening 07/13/2022 HIV Screening 07/13/2022 Hepatitis C Screening 07/13/2022 Social Influencers of Health Screening 07/13/2022 COVID-19 Vaccine (2023-2 5 season) 2024 Influenza Vaccine (Season Ended) 2025 HIB Vaccines Aged Out No longer eligi ble based on patient's age to complete this topic HPV Vaccines Aged Out No longer eligi ble based on patient's age to complete this topic Hepatitis A Vaccines Aged Out No long er eligible based on patient's age to complete this topic IPV Vaccines Aged Out No longer eligi ble based on patient's age to complete this topic MMR Vaccines Aged Out No longer eligi ble based on patient's age to complete this topic Meningococcal ACWY Vaccine Aged Out N o longer eligible based on patient's age to complete this topic Meningococcal B Vaccine Aged Out No l onger eligible based on patient's age to complete this topic Pneumococcal Vaccine: Pediat rics (0 to 5 Years) and At-Risk Patients (6 to 64 Years) Aged Out No longer eligible b ased on patient's age to complete this topic RSV Immunization Patients Un loly 20 months Aged Out No longer eligible b ased on patient's age to complete this topic Varicella Vaccines Aged Out No longer eligible based on patient's age to complete this topic Insurance MEDICAID - [place]
--- OUTSIDE RECORDS SUMMARY | 2024-11-23 08:14 | XMS_ITS | Encounter Summary ---
Author Organization [facility] Address [address] [place] [address] Care Team Providers Care Ski Edge Painter Name Role Phone Unavailable Primary Care Provider Unavailabl e Encounter Details Date Type Department Care Team (Late st Contact Info) Description 08/16/2024 Lab Requisition [facility] - Main Lab [address] [place] [address] Tennille Jerez MD 299 [facility] [address] [place] [phone] Urinary tract infection, site not specified Social History Tobacco Use Types Packs/Day Years Used Date Smoking Tobacco: Never Assessed Comments Unknown Sex and Gender Information Value Date Recorded Sex Assigned at Not on file Legal Sex Female 1:31 AM EST Gender Identity Not on file Sexual Orientation Not on file documented as of this encounter Plan of Treatment Not on file documented as of this encounter Procedures Procedure Name Priority Date/Time Associated Diagnosis Comments URINALYSIS WITH REFLEX MICROSCOPIC Routine 08/16/2024 12:00 AM EST Urinary tract infection, site not specified URINALYSIS WITH REFLEX MICROSCOPIC Routine 08/16/2024 12:00 AM EST Urinary tract infection, site not specified CULTURE URINE Routine 08/16/2024 12:00 AM EST Urinary tract infection, site not specified documented in this encounter Results * Urinalysis with reflex microscopic (08/16/2024 12:00 AM EST) Specific [place] Urine 1.019 1.003 - 1.030 LAB URINALYSIS - AUTOMATED METHOD 08/16/2024 7:08 PM EST [facility] pH, Urine 6.5 5.0 - 8.0 pH LAB URINALYSIS - AUTOMATED METHOD 08/16/2024 7:08 PM [facility] Leukocytes, Urine Negative Negative LAB URINALYSIS - AUTOMATED METHOD 08/16/2024 7:08 PM [facility] Nitrite, Urine Negative Negative LAB URINALYSIS - AUTOMATED METHOD 08/16/2024 7:08 PM [facility] Protein, Urine Negative <=Trace mg/dL LAB URINALYSIS - AUTOMATED METHOD 08/16/2024 7:08 PM [facility] Glucose, Urine Negative Negative mg/dL LAB URINALYSIS - AUTOMATED METHOD 08/16/2024 7:08 PM [facility] Ketones, Urine Negative Negative mg/dL LAB URINALYSIS - AUTOMATED METHOD 08/16/2024 7:08 PM [facility] Urobilinogen, Urine 1.0 0.2 - 1.0 mg/dL LAB URINALYSIS - AUTOMATED METHOD 08/16/2024 7:08 PM [facility] Bilirubin, Urine Negative Negative LAB URINALYSIS - AUTOMATED METHOD 08/16/2024 7:08 PM [facility] Blood, Urine Negative Negative LAB URINALYSIS - AUTOMATED METHOD 08/16/2024 7:08 PM [facility] Urine Urine specimen obtained by clean catch procedure / Unknown 08/16/2024 08/16/2024 5:59 PM EST us Tennille Jerez MD LAB URINE ORDERABLES Fin al Result [facility] [address] [place] [address], * Culture urine (08/16/2024 12:00 AM EST) Culture, Urine No growth 08/17/2024 2:17 PM [facility] Urine Urine specimen obtained by clean catch procedure / Unknown 08/16/2024 08/16/2024 5:59 PM EST us Tennille Jerez MD LAB MICROBIOLOGY - GENER AL ORDERABLES Final Result [facility] [address] [place] [address], documented in this encounter Visit Diagnoses Diagnosis Urinary tract infection, site not specified documented in this encounter
--- OUTSIDE RECORDS SUMMARY | 2024-11-23 08:14 | XMS_ITS | Clinical Summary ---
Author Organization [facility] Address [address] [place] [address] Care Team Providers Care Medical Scientific Officer Name Role Phone Unavailable Primary Care Provider Unavailabl e Source Comments PLEASE NOTE, if this patient is a minor, it may be UNLAWFUL to discuss sensitive information that is contained in these records (such as FAMILY PLANNING, MENTAL HEALTH or SUBSTANCE ABUSE) with the minor patient's parent or other person without the patient's specific authorization.[facility] Allergies No known active allergies Active Problems Problem Noted Date Diagnosed Date Gonorrhea 04/30/2017 Social History Tobacco Use Types Packs/Day Years Used Date Smoking Tobacco: Never Assessed Social Connections Answer Date Recorded Social Connections and Isolation 0 04/03/2019 Financial Resource Strain Answer Date R ecorded Financial Resource Strain 0 2018 Stress Answer Date Recorded Stress 0 04/03/2019 Physical Activity Answer Date Recorded Physical Activity 0 04/03/2019 Food Insecurity Answer Date Recorded Food 0 04/03/2019 Transportation Needs Answer Date Record ed Transportation 0 04/03/2019 Housing Stability Answer Date Recorded Housing 0 04/03/2019 Safety and Environment Answer Date Angel rded Safety 0 04/03/2019 Utilities Answer Date Recorded Utilities 0 04/03/2019 Employment Answer Date Recorded Employment 0 04/03/2019 Comments Unknown Sex and Gender Information Value Date Recorded Sex Assigned at Not on file Legal Sex Female 1:50 PM PDT Gender Identity Not on file Sexual Orientation Not on file Plan of Treatment Not on file Insurance ID MEDICAID
== END ==
LOC: HO.CARD 08:09
PROVIDERS: Visit Provider Internal Medicine Cardiovascular Disease
DX: O90.3 Peripartum cardiomyopathy (principal)
CPT/HCPCS: 93306

== ENCOUNTER → 2024-11-23 08:12 | Outpatient (BNV) | payer OTHER, SELFPAY | PROVIDERS: Visit Provider Internal Medicine Cardiovascular Disease | DX: O90.3 Peripartum cardiomyopathy (principal); I35.1 Nonrheumatic aortic (valve) insufficiency | CPT/HCPCS: 93306 ==

== ENCOUNTER 2024-12-06 13:23 | Outpatient (AMB) | payer OTHER, SELFPAY ==
[2024-12-06 13:35] VITALS: BP 122/74; PULSE 65; BMI 27.1
--- NOTE | 2024-12-06 13:35 | MHC.OFFVIS ---
Vital Signs 12/06/24 13:35 Height 5 ft Weight 138 lb 14.259 oz BMI 27.1 BP 122/74 Blood Pressure Location Lt brachial Position Sitting Pulse 65 Intake Visit Reasons: 1 yr f/up Intake Note: 1 year follow-up with ekg feeling good Med Aide Required: No Allergies No Known Allergies Allergy (Verified 06/16/24 15:02) Medication List - Last Reconciled 12/06/24 by Manuel Hernandez MD albuterol sulfate 90 mcg/actuation 2 puffs inhalation Q6H PRN carvedilol 3.125 mg PO BID sacubitril-valsartan 24-26 mg (Entresto) 1 tab PO BID spironolactone 12.5 mg (1/2 x 25 mg) PO BID HPI Comments Details: Darcie comes for follow-up. She has been doing very well from cardiac perspective. Her most recent echocardiogram shows low normal LV ejection fraction 50-55%. She has no symptoms from cardiac perspective. Denies any orthopnea, PND, worsening shortness of breath, leg edema. Currently taking her medications regularly. No plans for 2nd child at this point time. Denies any lightheadedness, syncope. No prolonged palpitation irregular heartbeat. COUNT INCLUDES [facility] Medical History Peripartum cardiomyopathy Asthma Acute cardiogenic pulmonary edema Surgical History No pertinent past surgical history Social History Household Members: Significant Other Household Members Other:: daughter Housing: House Do you presently have visiting nurse or other home services: No Alcohol intake: never Patient Tobacco Use Status: Never used Tobacco service: No Review of Systems Const Denies chills, Denies fatigue, Denies fever(s), Denies frequent falls, Denies weakness, Denies weight gain and Denies weight loss ENT Denies dizziness Card Denies chest pain, Denies leg edema, Denies lightheadedness, Denies palpitations, Denies dyspnea, Denies dyspnea on exertion, Denies orthopnea and Denies other (loss of consciousness) Resp Denies cough, Denies dyspnea and Denies dyspnea on exertion GI Denies hematochezia and Denies change in stool character Musc Denies abnormal gait, Denies muscle weakness, Denies numbness, Denies radiating pain into limb and Denies tingling Neuro Denies abnormal gait, Denies dizziness, Denies frequent falls, Denies numbness, Denies tingling and Denies weakness Endo Denies fatigue and Denies palpitations Physical Exam Vital Signs: Last Vital Signs Pulse 65 12/06/24 13:35 BP 122/74 12/06/24 13:35 BMI result Body Mass Index 27.1 Const General: cooperative, healthy appearing, comfortable and no acute distress Orientation/consciousness: patient oriented x3 Neck Neck: Yes normal visual inspection Resp Effort & Inspection: normal respiratory effort Auscultation: clear to auscultation bilaterally, no rales, no rhonchi and no wheezes Cardio Jugular venous distension: no JVD Rate: regular rate Rhythm: regular rhythm Heart sounds: S1 normal heart sound present, S2 normal heart sound present, no murmurs and no rubs Neuro General: patient oriented x3 Extrem General: Yes normal to inspection, No no pedal edema and No calf tenderness Psych Appearance: grossly normal Mental Status: mental status grossly normal Speech and movement: Normal speech and movement present Office Procedures EKG Details: EKG shows normal sinus rhythm with nonspecific T-wave changes [id number], Complete Assessment & Plan Assessment & Plan (1) Peripartum cardiomyopathy: Comment: [email or web address] Code(s): O90.3 - Peripartum cardiomyopathy Category: Medical Plan: 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 Heart failure syndrome has resolved in LV ejection fraction has gradually improved to low normal range. She was no signs or symptoms of heart failure at this point time. At this point time continue neurohormonal modulation importance of this was discussed. Continue current carvedilol, Entresto as well as spironolactone therapy. Counseled against 2nd as her risk for recurrent peripartum cardiomyopathy is high. She understands agrees in his not planning for having any more children. Advised to call me with any worsening symptoms. Will follow up in the clinic in 1 year's time, sooner p.r.n.. Thank you for allowing me to partake in her care Coding Level of Care Code Est Pt Level 4 (75998) Complex EM visit Add On G2211 Diagnoses Peripartum cardiomyopathy O90.3 CPT Codes EKG - CPT: 39421-[id number], Complete ([id number])
--- OUTSIDE RECORDS SUMMARY | 2024-12-06 15:27 | XMS_ITS | Encounter Summary ---
Author Organization [facility] Address [address] [place] [address] Care Team Providers Care Mail Room Name Role Phone Unavailable Primary Care Provider Unavailabl e Encounter Details Date Type Department Care Team (Late st Contact Info) Description 08/16/2024 Lab Requisition [facility] - Main Lab [address] [place] [address] Tennille Jerez MD 299 [facility] [address] [place] [phone] Urinary tract infection, site not specified Social [...] reflex microscopic (08/16/2024 12:00 AM EST) Specific [place] Urine 1.019 1.003 - 1.030 LAB URINALYSIS - AUTOMATED METHOD 08/16/2024 7:08 PM EST [facility] pH, Urine 6.5 5.0 - 8.0 pH LAB URINALYSIS - AUTOMATED METHOD 08/16/2024 7:08 PM [facility] Leukocytes, Urine Negative Negative LAB URINALYSIS - AUTOMATED METHOD 08/16/2024 7:08 PM [facility] Nitrite, Urine Negative Negative LAB URINALYSIS - AUTOMATED METHOD 08/16/2024 7:08 PM [facility] Protein, Urine Negative <=Trace mg/dL LAB URINALYSIS - AUTOMATED METHOD 08/16/2024 7:08 PM [facility] Glucose, Urine Negative Negative mg/dL LAB URINALYSIS - AUTOMATED METHOD 08/16/2024 7:08 PM [facility] Ketones, Urine Negative Negative mg/dL LAB URINALYSIS - AUTOMATED METHOD 08/16/2024 7:08 PM [facility] Urobilinogen, Urine 1.0 0.2 - 1.0 mg/dL LAB URINALYSIS - AUTOMATED METHOD 08/16/2024 7:08 PM [facility] Bilirubin, Urine Negative Negative LAB URINALYSIS - AUTOMATED METHOD 08/16/2024 7:08 PM [facility] Blood, Urine Negative Negative LAB URINALYSIS - AUTOMATED METHOD 08/16/2024 7:08 PM [facility] Urine Urine specimen obtained by clean catch procedure / Unknown 08/16/2024 08/16/2024 5:59 PM EST us Tennille Jerez MD LAB URINE ORDERABLES Fin al Result [facility] [address] [place] [address], * Culture urine (08/16/2024 12:00 AM EST) Culture, Urine No growth 08/17/2024 2:17 PM [facility] Urine Urine specimen obtained by clean catch procedure / Unknown 08/16/2024 08/16/2024 5:59 PM EST us Tennille Jerez MD LAB MICROBIOLOGY - GENER AL ORDERABLES Final Result [facility] [address] [place] [address], documented in this encounter Visit Diagnoses Diagnosis Urinary tract infection, site not specified documented in this encounter
--- OUTSIDE RECORDS SUMMARY | 2024-12-06 15:27 | XMS_ITS | Clinical Summary ---
Author Organization LL [address] [facility] Address [address] [place] [address] Phone Care Team Providers Care Director Industrial Relations Name Role Phone Unavailable Primary Care Provider [...]
--- OUTSIDE RECORDS SUMMARY | 2024-12-06 15:27 | XMS_ITS | Clinical Summary ---
Author Organization [facility] Address [address] [place] [address] Care Team Providers Care Water Tester Name Role Phone Unavailable Primary Care Provider [...] Plan of Treatment Not on file Insurance [place] MEDICAID
== END 2024-12-06 13:59 | disposition home or self-care (01) ==
PROVIDERS: PCP Obstetrics & Gynecology; Visit Provider Internal Medicine Cardiovascular Disease
DX: O90.3 Peripartum cardiomyopathy (principal)
CPT/HCPCS: 93010; 99214; G2211

== ENCOUNTER → 2024-12-06 13:23 | Outpatient (BNVA) | payer OTHER, SELFPAY | PROVIDERS: PCP Obstetrics & Gynecology; Visit Provider Internal Medicine Cardiovascular Disease | DX: O90.3 Peripartum cardiomyopathy (principal) | CPT/HCPCS: 93005; 99212 ==